=== PATIENT | female | born 1955 | race Caucasian/White ===

== ENCOUNTER 2017-08-20 14:58 | Inpatient (IN) | payer OTHER ==
[~2017-08-20] VITALS: Ht 165.1 cm; Wt 65.8 kg
[2017-08-20] MEDS ORDERED: ONDANSETRON HCL/PF 4 MG/2 ML VIAL ONE (16:00)
[2017-08-20] MEDS ORDERED: IV NS 0.9% 1,000 ML BAG IV ONE ×2 (16:00→17:30)
[2017-08-20] MEDS ORDERED: ONDANSETRON HCL/PF 4 MG/2 ML VIAL IVP ONE (16:00)
[2017-08-20 16:09] LABS: BASOPHILS % (AUTO) 0.5 % (0.0-2.0); EOSINOPHILS % (AUTO) 0.2 % (0.0-6.0); HEMATOCRIT 43 % (33-45); HEMOGLOBIN 14.7 g/dL (11.5-14.8); LYMPHOCYTES # (AUTO) 0.8 /CMM (0.8-4.8); LYMPHOCYTES % (AUTO) 8.3 % (20.0-44.0); MEAN CORPUSCULAR HEMOGLOBIN 31 PG (26.0-33.0); MEAN CORPUSCULAR HGB CONC 34 g/dl (31.0-36.0); MEAN CORPUSCULAR VOLUME 92 fL (82-100); MONOCYTES # (AUTO) 0.5 /CMM (0.1-1.30); MONOCYTES % (AUTO) 5.6 % (2.0-12.0); NEUTROPHILS # (AUTO) 8.3 /CMM (1.8-8.9); NEUTROPHILS % (AUTO) 85.4 % (43.0-81.0); PLATELET COUNT (AUTO) 234 /CMM (150-450); RDW COEFFICIENT OF VARIATION 12.6 (11.5-15.0); RED BLOOD CELL COUNT(AUTO) 4.74 MIL/uL (4.0-5.2); WHITE BLOOD COUNT (AUTO) 9.6 K/uL (4.3-11.0)
[2017-08-20 16:20] LABS: CALCIUM, SERUM 9.1 mg/dL (8.5-10.1); CARBON DIOXIDE 26 mmol/L (21-32); CHLORIDE 97 mmol/L (98-107); CREATININE 0.7 mg/dL (0.6-1.3); GLUCOSE 170 mg/dL (74-106); POTASSIUM 3.3 mmol/L (3.5-5.1); SODIUM SERUM 133 mmol/L (136-145); UREA NITROGEN, BLOOD 6 mg/dL (7-18)
[2017-08-20 16:28] LABS: TROPONIN I < 0.017 ng/mL (0.00-0.056)
[2017-08-20 16:36] LABS: ALANINE AMINOTRANSFERASE 44 U/L (12-78); ALBUMIN 3.5 g/dL (3.4-5.0); ALCOHOL, BLOOD < 3 mg/dL (0-0); ALKALINE PHOSPHATASE 95 U/L (46-116); ASPARTATE AMINOTRANSFERASE 22 U/L (15-37); BILIRUBIN,TOTAL 0.3 mg/dL (0.2-1.0); TOTAL PROTEIN, SERUM 7.2 g/dL (6.4-8.2)
[2017-08-20 16:38] LABS: SALICYLATE 1.3 mg/dL (2.8-20.0)
[2017-08-20 16:39] LABS: ACETAMINOPHEN 0 ug/ml (10-30)
[2017-08-20 17:43] LABS: APPEARANCE,URINE Clear (CLEAR); BILIRUBIN,URINE Negative (NEGATIVE); BLOOD, URINE Small Ery/uL (NEGATIVE); COLOR,URINE Yellow (YELLOW); KETONES,URINE Negative (NEGATIVE); LEUKOCYTE ESTERASE ,URINE Negative (NEGATIVE); NITRITE, URINE Negative (NEGATIVE); PROTEIN,URINE Negative (NEGATIVE); UGLUCOSE Negative (NEGATIVE); UROBILINOGEN,URINE 0.2 EU/dL (0.2)
[2017-08-20] MEDS ORDERED: ALBU8.5H2 IH (17:44)
[2017-08-20] MEDS ORDERED: PALI117D IM (17:44)
[2017-08-20] MEDS ORDERED: ALBU18HF2 IH (17:44)
[2017-08-20] MEDS ORDERED: FLUT16SP16 NS (17:44)
[2017-08-20] MEDS ORDERED: HYDR25TA4 PO (17:44)
[2017-08-20 18:04] LABS: BACTERIA,URINE Few /HPF (None Seen); SQUAMOUS EPITHELIAL CELL,UR Few /HPF (None Seen); WBC,URINE 0-2 /HPF (0-3)
[2017-08-20] MEDS ORDERED: IOHEXOL-300 100 ML VIAL IV ONE (18:26)
[2017-08-20] MEDS ORDERED: IV NS 0.9% 250 ML IV ONE (18:26)
[2017-08-20] MEDS ORDERED: POTASSIUM CHLORIDE 20 MEQ TAB.PRT.SR PO ONE ×2 (19:30→19:42)
[2017-08-20] MEDS ORDERED: ALBUTEROL SULFATE 8 GM HFA.AER.AD IH PRN (20:00)
[2017-08-20] MEDS ORDERED: MAG HYDROX/AL HYDROX/SIMETH 30 ML UDC PO PRN (20:30)
[2017-08-20] MEDS ORDERED: ZOLPIDEM TARTRATE 5 MG TABLET PO PRN (20:30)
[2017-08-20] MEDS ORDERED: MAGNESIUM HYDROXIDE 30 ML UDC PO PRN (20:30)
[2017-08-20] MEDS ORDERED: ACETAMINOPHEN 325 MG TABLET PO PRN (20:30)
[2017-08-20] MEDS ORDERED: ONDANSETRON HCL/PF 4 MG/2 ML VIAL IVP PRN (20:30)
[2017-08-20] MEDS ORDERED: Z GUARD REMEDY 2 OZ OINT TP PRN (20:30)
[2017-08-20 20:35] VITALS: BP 141/79
[2017-08-20] MEDS: IV NS 0.9% 1,000 ML IV PRN (22:22)
[2017-08-20] MEDS: ENOXAPARIN SODIUM 40 MG/0.4 ML DISP.SYRIN SQ SCH (22:34)
[2017-08-20 23:00] VITALS: BP 141/79
[2017-08-20] MEDS: ALBUTEROL FS 2.5 MG/0.5 ML VIAL.NEB NEB PRN (23:33)
[2017-08-21] MEDS: ALBUTEROL FS 2.5 MG/0.5 ML VIAL.NEB NEB SCH ×2 (07:18→20:10)
[2017-08-21 07:28] LABS: BASOPHILS % (AUTO) 0.5 % (0.0-2.0); EOSINOPHILS # (AUTO) 0.1 /CMM (0.0-0.7); EOSINOPHILS % (AUTO) 0.8 % (0.0-6.0); HEMATOCRIT 41 % (33-45); HEMOGLOBIN 13.8 g/dL (11.5-14.8); LYMPHOCYTES # (AUTO) 0.9 /CMM (0.8-4.8); LYMPHOCYTES % (AUTO) 11.7 % (20.0-44.0); MEAN CORPUSCULAR HEMOGLOBIN 31 PG (26.0-33.0); MEAN CORPUSCULAR HGB CONC 34 g/dl (31.0-36.0); MEAN CORPUSCULAR VOLUME 93 fL (82-100); MONOCYTES # (AUTO) 0.8 /CMM (0.1-1.30); MONOCYTES % (AUTO) 10.1 % (2.0-12.0); NEUTROPHILS % (AUTO) 76.9 % (43.0-81.0); PLATELET COUNT (AUTO) 220 /CMM (150-450); RDW COEFFICIENT OF VARIATION 13.6 (11.5-15.0); RED BLOOD CELL COUNT(AUTO) 4.42 MIL/uL (4.0-5.2); WHITE BLOOD COUNT (AUTO) 7.8 K/uL (4.3-11.0)
[2017-08-21 07:50] LABS: CALCIUM, SERUM 8.7 mg/dL (8.5-10.1); CREATININE 0.6 mg/dL (0.6-1.3); PHOSPHORUS 3.5 mg/dL (2.5-4.9); POTASSIUM 4.1 mmol/L (3.5-5.1)
[2017-08-21 08:00] VITALS: BP_SYST 142; BP_SYST 143; BP_DIAS 86
[2017-08-21] MEDS: FLUTICASONE PROPIONATE 16 GM BOTTLE NS SCH ×2 (08:14→16:23)
[2017-08-21] MEDS ORDERED: ALBUTEROL SULFATE 8 GM HFA.AER.AD IH SCH (09:00)
[2017-08-21 16:00] VITALS: BP 147/83
[2017-08-21 20:00] VITALS: BP 117/74
[2017-08-21] MEDS: ENOXAPARIN SODIUM 40 MG/0.4 ML DISP.SYRIN SQ SCH (20:04)
[2017-08-22] MEDS: IV NS 0.9% 1,000 ML IV PRN (03:49)
[2017-08-22] MEDS: ALBUTEROL FS 2.5 MG/0.5 ML VIAL.NEB NEB SCH ×2 (07:26→20:21)
[2017-08-22 08:00] VITALS: BP 159/91
[2017-08-22] MEDS: FLUTICASONE PROPIONATE 16 GM BOTTLE NS SCH ×2 (08:17→17:27)
[2017-08-22] MEDS: GUAIFENESIN/CODEINE 10 ML UDC PO PRN (13:17)
[2017-08-22 16:00] VITALS: BP 140/79
[2017-08-22] MEDS: ALBUTEROL FS 2.5 MG/0.5 ML VIAL.NEB NEB PRN (16:46)
[2017-08-22 19:55] VITALS: BP 128/80
[2017-08-22 20:00] VITALS: BP 120/86
[2017-08-22] MEDS: ENOXAPARIN SODIUM 40 MG/0.4 ML DISP.SYRIN SQ SCH (20:20)
[2017-08-23] MEDS: ALBUTEROL FS 2.5 MG/0.5 ML VIAL.NEB NEB SCH ×2 (07:45→19:30)
[2017-08-23 08:00] VITALS: BP 139/94
[2017-08-23] MEDS: FLUTICASONE PROPIONATE 16 GM BOTTLE NS SCH ×2 (09:47→17:03)
[2017-08-23] MEDS: GUAIFENESIN/CODEINE 10 ML UDC PO PRN (10:09)
[2017-08-23 16:00] VITALS: BP 144/96
[2017-08-23] MEDS ORDERED: OLANZAPINE 5 MG/TAB.RAPDIS PO ONE (17:00)
[2017-08-23] MEDS: HYDROCODONE/APAP 5/325MG 1 EACH TABLET PO PRN ×2 (17:01→22:25)
[2017-08-23 20:00] VITALS: BP 153/85
[2017-08-23] MEDS: ENOXAPARIN SODIUM 40 MG/0.4 ML DISP.SYRIN SQ SCH (20:30)
[2017-08-24] MEDS: ALBUTEROL FS 2.5 MG/0.5 ML VIAL.NEB NEB SCH (07:32)
[2017-08-24 08:00] VITALS: BP 130/83
[2017-08-24] MEDS: FLUTICASONE PROPIONATE 16 GM BOTTLE NS SCH (09:03)
[2017-09-07] MEDS ORDERED: PALIPERIDONE PALMITATE 117 MG IM SCH (09:00)
== END 2017-08-24 10:35 | disposition home or self-care (01) | DRG 249 ==
LOC: ER 15:03 → MED 20:02
PROVIDERS: ADMIT Internal Medicine; ATTEND Internal Medicine
DX: A08.4 Viral intestinal infection, unspecified (principal); E87.2 Acidosis; E86.0 Dehydration; I10 Essential (primary) hypertension; E87.1 Hypo-osmolality and hyponatremia; E86.1 Hypovolemia; F17.200 Nicotine dependence, unspecified, uncomplicated; E87.6 Hypokalemia; J44.9 Chronic obstructive pulmonary disease, unspecified; Z79.899 Other long term (current) drug therapy; I73.9 Peripheral vascular disease, unspecified; Z88.0 Allergy status to penicillin; K42.9 Umbilical hernia without obstruction or gangrene; F31.9 Bipolar disorder, unspecified
CPT/HCPCS: 36415; 80048-TC; 80076-TC; 80305; 81000-TC; 83605-TC; 83735-TC; 84100-TC; 84484-TC; 85025-TC; 87040-TC; 87081-TC; A4606; G0480; J1650; J2405; J7030; J7050; Q9967; Z7610

== ENCOUNTER 2017-09-02 20:06 | Emergency (ER) | payer OTHER ==
[~2017-09-02] VITALS: Ht 175.3 cm; Wt 56.7 kg
[~2017-09-02 20:06] MED LIST: ALBU18HF2 IH; ALBU8.5H2 IH; FLUT16SP16 NS; HYDR25TA4 PO; PALI117D IM
--- NOTE | 2017-09-02 20:15 | NUR ---
NOT IN THE WAITING ROOM
--- NOTE | 2017-09-02 20:20 | NUR ---
CALLED BUT NOT IN THE WAITING ROOM
--- NOTE | 2017-09-02 20:40 | NUR ---
PT BIB SON TO ER BED 12. HERE FOR MEDICAL AND PSYCH EVAL. PER FAMILY, BEEN TAKEN OFF HIS PSYCH MEDICATION. PT HAS MULTIPLE COMPLAINTS. PLACED ON MONITOR. NAD NOTED. AWAITING MD COTO.
--- NOTE | 2017-09-02 20:53 | NUR ---
DR PRINCE AT BEDSIDE FOR EVAL.
--- NOTE | 2017-09-02 21:00 | NUR ---
Savanna leach in [facility] - 09/02/17 at 2235 by VESNA CHOIR TEACHER AT BEDSIDE FOR EVAL.
--- NOTE | 2017-09-02 21:00 | NUR ---
SPOOL HAULER AT BEDSIDE FOR BLOOD DRAW.
[2017-09-02 21:10] LABS: BASOPHILS % (AUTO) 0.1 % (0.0-2.0); EOSINOPHILS # (AUTO) 0.4 /CMM (0.0-0.7); HEMATOCRIT 46 % (33-45); HEMOGLOBIN 15.3 g/dL (11.5-14.8); LYMPHOCYTES # (AUTO) 1.2 /CMM (0.8-4.8); LYMPHOCYTES % (AUTO) 12.6 % (20.0-44.0); MEAN CORPUSCULAR HEMOGLOBIN 31 PG (26.0-33.0); MEAN CORPUSCULAR HGB CONC 34 g/dl (31.0-36.0); MEAN CORPUSCULAR VOLUME 93 fL (82-100); MONOCYTES # (AUTO) 0.8 /CMM (0.1-1.30); MONOCYTES % (AUTO) 9.1 % (2.0-12.0); NEUTROPHILS # (AUTO) 6.8 /CMM (1.8-8.9); NEUTROPHILS % (AUTO) 74.2 % (43.0-81.0); PLATELET COUNT (AUTO) 221 /CMM (150-450); RDW COEFFICIENT OF VARIATION 13.8 (11.5-15.0); RED BLOOD CELL COUNT(AUTO) 4.91 MIL/uL (4.0-5.2); WHITE BLOOD COUNT (AUTO) 9.2 K/uL (4.3-11.0)
[2017-09-02 21:13] LABS: CALCIUM, SERUM 9.4 mg/dL (8.5-10.1); CARBON DIOXIDE 28 mmol/L (21-32); CHLORIDE 99 mmol/L (98-107); CREATININE 0.7 mg/dL (0.6-1.3); GLUCOSE 129 mg/dL (74-106); SODIUM SERUM 136 mmol/L (136-145); UREA NITROGEN, BLOOD 14 mg/dL (7-18)
[2017-09-02 21:19] LABS: ALANINE AMINOTRANSFERASE 35 U/L (12-78); ALBUMIN 3.8 g/dL (3.4-5.0); ALCOHOL, BLOOD 4 mg/dL (0-0); ALKALINE PHOSPHATASE 112 U/L (46-116); ASPARTATE AMINOTRANSFERASE 21 U/L (15-37); BILIRUBIN,TOTAL 0.3 mg/dL (0.2-1.0); SALICYLATE 3.2 mg/dL (2.8-20.0); TOTAL PROTEIN, SERUM 7.6 g/dL (6.4-8.2)
[2017-09-02 21:20] LABS: ACETAMINOPHEN < 10 ug/ml (10-30)
[2017-09-02 22:25] LABS: APPEARANCE,URINE CLEAR (CLEAR); BILIRUBIN,URINE NEGATIVE (NEGATIVE); BLOOD, URINE 1+ Ery/uL (NEGATIVE); COLOR,URINE YELLOW (YELLOW); KETONES,URINE NEGATIVE (NEGATIVE); LEUKOCYTE ESTERASE ,URINE NEGATIVE (NEGATIVE); NITRITE, URINE NEGATIVE (NEGATIVE); PROTEIN,URINE NEGATIVE (NEGATIVE); UGLUCOSE NEGATIVE (NEGATIVE); UROBILINOGEN,URINE 0.2 EU/dL (0.2)
[2017-09-02 22:35] LABS: BACTERIA,URINE None seen /HPF (None Seen); SQUAMOUS EPITHELIAL CELL,UR Few /HPF (None Seen); WBC,URINE 0-2 /HPF (0-3)
--- NOTE | 2017-09-02 23:27 | NUR ---
REPORT GIVEN TO CHARGE NURSE SUSAN FOR DAJUAN
--- NOTE | 2017-09-03 04:30 | NUR ---
Savanna leach in ED - 09/03/17 at 0528 by GENE AMBULANZ EMT ARRIVED AND REPORT WAS GIVEN BY Jesus LOVELACE RN.
--- NOTE | 2017-09-03 04:35 | NUR ---
Savanna leach in EDM - 09/03/17 at 0528 by GENE PT TRANSFERRED OUT TO [facility]. COPY OF ALL PAPERWORK GIVEN.
--- NOTE | 2017-09-03 07:09 | NUR ---
KATHERINE CALLED FOR TRANSPORT. ETA 75 MIN.
--- NOTE | 2017-09-03 08:49 | NUR ---
REPORT GIVEN TO EMT FOR DAJUAN
[2017-09-03 09:23] VITALS: BP 130/80
== END 2017-09-03 09:54 ==
LOC: ER 20:09
DX: F29 Unspecified psychosis not due to a substance or known physiological condition (principal); J44.9 Chronic obstructive pulmonary disease, unspecified; F31.9 Bipolar disorder, unspecified; Z88.0 Allergy status to penicillin
CPT/HCPCS: 36415; 80048; 80076; 80305; 80329; 81001; 85025; 99285; A4606; G0480 ×2; Z7610; 81000-TC

== ENCOUNTER 2018-02-17 15:05 | Emergency (ER) | payer OTHER ==
[~2018-02-17] VITALS: Ht 167.6 cm; Wt 61.2 kg
[~2018-02-17 15:05] MED LIST changes: -ALBU8.5H2 IH; +ALBU8.5H8 IH
--- NOTE | 2018-02-17 15:15 | NUR ---
PATIENT TO ED DT GENERALIZED WEAKNESS AND SOB,. PATIENT IS AWAKE AND ALERT, APPEARS IN NO DISTRESS. RESPIRATION EVEN AND UNLABORED. SKIN IS WARM TO TOUCH AND NON DIAPHORETIC,. PATIENT IS AFEBRILE. VSS
[2018-02-17] MEDS ORDERED: predniSONE 20 MG TABLET ONE (15:50)
[2018-02-17] MEDS ORDERED: ALBUTEROL FS 2.5 MG/3 ML VIAL.NEB ONE (15:51)
[2018-02-17] MEDS ORDERED: IPRATROPIUM NEB FS 0.5 MG/2.5 ML AMPUL.NEB ONE (15:52)
[2018-02-17] MEDS ORDERED: predniSONE 20 MG TABLET PO ONE (16:00)
[2018-02-17] MEDS ORDERED: IPRATROPIUM NEB FS 0.5 MG/2.5 ML AMPUL.NEB NEB ONE (16:00)
[2018-02-17] MEDS ORDERED: ALBUTEROL FS 2.5 MG/3 ML VIAL.NEB NEB ONE (16:00)
[2018-02-17 16:02] LABS: BASOPHILS % (AUTO) 0.4 % (0.0-2.0); EOSINOPHILS % (AUTO) 0.5 % (0.0-6.0); HEMATOCRIT 41 % (33-45); HEMOGLOBIN 14.4 g/dL (11.5-14.8); LYMPHOCYTES # (AUTO) 1.2 /CMM (0.8-4.8); LYMPHOCYTES % (AUTO) 16.1 % (20.0-44.0); MEAN CORPUSCULAR HGB CONC 35 g/dl (31.0-36.0); MEAN CORPUSCULAR VOLUME 90 fL (82-100); MONOCYTES # (AUTO) 0.8 /CMM (0.1-1.30); MONOCYTES % (AUTO) 10.1 % (2.0-12.0); NEUTROPHILS # (AUTO) 5.5 /CMM (1.8-8.9); NEUTROPHILS % (AUTO) 72.9 % (43.0-81.0); PLATELET COUNT (AUTO) 289 /CMM (150-450); RDW COEFFICIENT OF VARIATION 11.6 (11.5-15.0); RED BLOOD CELL COUNT(AUTO) 4.59 MIL/uL (4.0-5.2); WHITE BLOOD COUNT (AUTO) 7.5 K/uL (4.3-11.0)
[2018-02-17 16:22] LABS: CALCIUM, SERUM 8.4 mg/dL (8.5-10.1); CARBON DIOXIDE 32 mmol/L (21-32); CHLORIDE 88 mmol/L (98-107); CREATININE 0.6 mg/dL (0.6-1.3); GLUCOSE 109 mg/dL (74-106); SODIUM SERUM 125 mmol/L (136-145); UREA NITROGEN, BLOOD 8 mg/dL (7-18)
[2018-02-17 16:28] LABS: ALANINE AMINOTRANSFERASE 49 U/L (12-78); ALBUMIN 3.6 g/dL (3.4-5.0); ALKALINE PHOSPHATASE 111 U/L (46-116); ASPARTATE AMINOTRANSFERASE 17 U/L (15-37); BILIRUBIN,DIRECT 0.1 mg/dL (0.0-0.2); BILIRUBIN,TOTAL 0.3 mg/dL (0.2-1.0); TOTAL PROTEIN, SERUM 7.3 g/dL (6.4-8.2)
[2018-02-17] MEDS ORDERED: ACETAMINOPHEN 325 MG TABLET ONE (16:28)
[2018-02-17] MEDS ORDERED: ACETAMINOPHEN 325 MG TABLET PO ONE (16:30)
[2018-02-17 16:32] LABS: TROPONIN I < 0.017 ng/mL (0.00-0.056)
[2018-02-17] MEDS ORDERED: POTASSIUM CHLORIDE 20 MEQ TAB.PRT.SR PO ONE ×2 (17:00)
[2018-02-17] MEDS ORDERED: IV NS 0.9% 1,000 ML BAG IV ONE (17:00)
[2018-02-17] MEDS ORDERED: PANT40TA2 PO (18:31)
[2018-02-17] MEDS ORDERED: TOPI50TA24 PO (18:31)
--- NOTE | 2018-02-17 18:51 | NUR ---
RECEIVED A CALL FROM [facility] AND WAS TOLD THAT THIS PT WOULD BE TRANSFERRED TO [facility]. PT IS ASSIGNED TO #: [id number]. NUMBER FOR REPORT IS [phone] DR KAISER FOWLER IS THE ACCEPTING MD FOR THIS PT.
--- NOTE | 2018-02-17 19:01 | NUR ---
REPORT GIVEN TO CHRISTIAN QUEEN FROM [facility] FOR CONTINUITY OF CARE
--- NOTE | 2018-02-17 19:10 | NUR ---
RECIEVED REPORT FROM CHRISTIAN MACIEL. PT APPEARS COMFORTABLE AT THIS TIME. PT NOTED WITH NO SOB 02 SAT 95% RA.
--- NOTE | 2018-02-17 19:33 | NUR ---
MIAH RICO AT BEDSIDE SPEAKING TO PT REGARING POC.
[2018-02-17 20:13] VITALS: BP 142/77
--- NOTE | 2018-02-17 20:45 | NUR ---
REPORT GIVEN TO EMT GABRIELLE FOR DAJUAN. IV INTACT AND PATENT. NO S/S INFECTION OR INFILTRATION NOTED AT THIS TIME. PT AWARE SHE WILL BE TRANSFERRED TO [place]. PT WITH ALL PERSONAL BELONGINGS. PT TO BE TRANSFERRED VIA GURNEY. PER GABRIELLE TOOK OVER CARE.
--- NOTE | 2018-02-17 20:46 | NUR ---
MIAH RICO AT BEDSIDE. SPEAKING TO PT REGARDING POC.
== END 2018-02-17 20:48 | disposition short-term general hospital (02) ==
LOC: ER 15:09
DX: R06.02 Shortness of breath (principal); E87.1 Hypo-osmolality and hyponatremia; J44.9 Chronic obstructive pulmonary disease, unspecified; I73.9 Peripheral vascular disease, unspecified; F31.9 Bipolar disorder, unspecified; F17.200 Nicotine dependence, unspecified, uncomplicated; Z88.0 Allergy status to penicillin
CPT/HCPCS: 36415; 71045; 80048; 80076; 83735; 84484; 85025; 93005; 94640; 99285; A4606; J7030; J7512; Z7610

== ENCOUNTER 2018-09-24 14:53 | Emergency (ER) | payer OTHER ==
[~2018-09-24] VITALS: Ht 162.6 cm; Wt 59.0 kg
[~2018-09-24 14:53] MED LIST changes: +PANT40TA2 PO; +TOPI50TA24 PO
--- NOTE | 2018-09-24 15:37 | NUR ---
SEEN BY . AWAITING ORDERS.
--- NOTE | 2018-09-24 15:50 | NUR ---
PT PROVIDED WITH BEDPAN, WILL PROVIDE SAMPLE WHEN CAN. PT STARTED ON O2 VIA NC AT 2MPL FOR COMFORT.
[2018-09-24 16:59] LABS: APPEARANCE,URINE Clear (CLEAR); BILIRUBIN,URINE Negative (NEGATIVE); BLOOD, URINE Small Ery/uL (NEGATIVE); COLOR,URINE Yellow (YELLOW); KETONES,URINE Negative (NEGATIVE); LEUKOCYTE ESTERASE ,URINE Negative (NEGATIVE); NITRITE, URINE Negative (NEGATIVE); PROTEIN,URINE Negative (NEGATIVE); UGLUCOSE Negative (NEGATIVE); UROBILINOGEN,URINE 0.2 EU/dL (0.2)
[2018-09-24 17:09] LABS: BACTERIA,URINE Rare /HPF (None Seen); SQUAMOUS EPITHELIAL CELL,UR Few /HPF (None Seen); WBC,URINE 0-2 /HPF (0-3)
--- NOTE | 2018-09-24 17:38 | NUR ---
CALLED KATHERINE FOR BLS TRANSPORT ETA 30 MINUTES TRIP#[id number]
--- NOTE | 2018-09-24 18:44 | NUR ---
PT OK'D FOR D/C PER MD. EMT TRANSPORT PRESENT. PT PROVIDED EDUCATION AND VERBALZING UNDERSTANDING. PT RV BY MD AGAIN JUST PRIOR TO D/C AT PT REQUEST.
[2018-09-24 18:50] VITALS: BP 135/82
== END 2018-09-24 18:51 ==
LOC: ER 14:56
DX: H61.23 Impacted cerumen, bilateral (principal); O92.6 Galactorrhea; K59.00 Constipation, unspecified; I10 Essential (primary) hypertension; J44.9 Chronic obstructive pulmonary disease, unspecified; F17.200 Nicotine dependence, unspecified, uncomplicated; Z88.0 Allergy status to penicillin
CPT/HCPCS: 70450; 74022; 81001; 99284; A4606; Z7610; 81000-TC

== ENCOUNTER 2018-09-28 10:00 | Emergency (ER) | payer OTHER ==
[~2018-09-28] VITALS: Ht 162.6 cm; Wt 70.3 kg
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
[2018-09-28] MEDS ORDERED: KETOROLAC TROMETHAMINE INJ 30 MG/ML VIAL ONE (10:29)
[2018-09-28] MEDS ORDERED: KETOROLAC TROMETHAMINE INJ 30 MG/ML VIAL IM ONE (10:30)
[2018-09-28] MEDS ORDERED: LORAZEPAM INJ 2 MG/ML VIAL IM ONE (10:30)
[2018-09-28] MEDS ORDERED: LORAZEPAM INJ 2 MG/ML VIAL ONE (10:30)
--- NOTE | 2018-09-28 11:26 | NUR ---
Called Stephanie and spoke to scallop cutter Emily to arrange a BLS transport back to [facility]. Was given an eta of 12:45-13:00 for product picker time. Trip#: [id number]
--- NOTE | 2018-09-28 12:42 | NUR ---
[facility] to [facility]. Written and verbal after care instructions given. Patient verbalizes understanding of instruction.
--- NOTE | 2018-09-28 12:55 | NUR ---
Referred patient to Michelle social media marketing specialist. LAVERNE Martinez at talking to patient.
[2018-09-28 13:17] VITALS: BP 105/68
== END 2018-09-28 13:18 | disposition home or self-care (01) ==
LOC: ER 10:04
DX: S33.8XXA Sprain of other parts of lumbar spine and pelvis, initial encounter (principal); F20.9 Schizophrenia, unspecified; I10 Essential (primary) hypertension; J44.9 Chronic obstructive pulmonary disease, unspecified; F17.200 Nicotine dependence, unspecified, uncomplicated; Z88.0 Allergy status to penicillin; W06.XXXA Fall from bed, initial encounter; Y93.89 Activity, other specified; Y92.89 Other specified places as the place of occurrence of the external cause; Y99.8 Other external cause status
CPT/HCPCS: 71045; 72100; 72170; 72220; 96372 ×2; 99283; A4606; J1885; J2060; Z7610

== ENCOUNTER 2018-11-15 16:38 | Emergency (ER) | payer OTHER ==
[~2018-11-15] VITALS: Ht 162.6 cm; Wt 59.0 kg
--- NOTE | 2018-11-15 17:00 | NUR ---
patient came in to the ER c/o sob, on room air, breathing evenly and unlabored. denies any pain at this time. connected to the monitor and pulse ox. kept comfortable, will continue to monitor accordingly.
[2018-11-15] MEDS ORDERED: ASPIRIN 325 MG TABLET ONE (17:26)
[2018-11-15] MEDS: ASPIRIN 325 MG TABLET PO ONE (17:28)
[2018-11-15 17:39] LABS: BASOPHILS # (AUTO) 0.1 /CMM (0.0-0.2); BASOPHILS % (AUTO) 1.1 % (0.0-2.0); EOSINOPHILS % (AUTO) 3.9 % (0.0-6.0); HEMATOCRIT 42 % (33-45); HEMOGLOBIN 14.3 g/dL (11.5-14.8); LYMPHOCYTES # (AUTO) 1.2 /CMM (0.8-4.8); LYMPHOCYTES % (AUTO) 17.9 % (20.0-44.0); MEAN CORPUSCULAR HGB CONC 34 g/dl (31.0-36.0); MEAN CORPUSCULAR VOLUME 94 fL (82-100); MONOCYTES # (AUTO) 0.8 /CMM (0.1-1.30); MONOCYTES % (AUTO) 12.1 % (2.0-12.0); NEUTROPHILS # (AUTO) 4.3 /CMM (1.8-8.9); PLATELET COUNT (AUTO) 250 /CMM (150-450); RED BLOOD CELL COUNT(AUTO) 4.49 MIL/uL (4.0-5.2); WHITE BLOOD COUNT (AUTO) 6.6 K/uL (4.3-11.0)
[2018-11-15 17:44] LABS: APPEARANCE,URINE Clear (CLEAR); BILIRUBIN,URINE Negative (NEGATIVE); BLOOD, URINE Trace-lysed Ery/uL (NEGATIVE); COLOR,URINE Yellow (YELLOW); KETONES,URINE Negative (NEGATIVE); LEUKOCYTE ESTERASE ,URINE Negative (NEGATIVE); NITRITE, URINE Negative (NEGATIVE); PROTEIN,URINE Negative (NEGATIVE); UGLUCOSE Negative (NEGATIVE); UROBILINOGEN,URINE 0.2 EU/dL (0.2)
--- NOTE | 2018-11-15 17:47 | NUR ---
URINE COLLECTED AND SENT TO LAB
[2018-11-15 17:49] LABS: CARBON DIOXIDE 35 mmol/L (21-32); CHLORIDE 97 mmol/L (98-107); CREATININE 0.8 mg/dL (0.6-1.3); GLUCOSE 108 mg/dL (74-106); POTASSIUM 3.8 mmol/L (3.5-5.1); SODIUM SERUM 133 mmol/L (136-145); UREA NITROGEN, BLOOD 20 mg/dL (7-18)
[2018-11-15 17:54] LABS: ALANINE AMINOTRANSFERASE 32 U/L (12-78); ALBUMIN 3.3 g/dL (3.4-5.0); ALCOHOL, BLOOD < 3 mg/dL (0-0); ALKALINE PHOSPHATASE 129 U/L (46-116); ASPARTATE AMINOTRANSFERASE 17 U/L (15-37); BILIRUBIN,TOTAL 0.1 mg/dL (0.2-1.0); TOTAL PROTEIN, SERUM 6.7 g/dL (6.4-8.2)
[2018-11-15 17:55] LABS: WBC,URINE 0-2 /HPF (0-3)
[2018-11-15] MEDS: IPRATROPIUM NEB FS 0.5 MG/2.5 ML AMPUL.NEB NEB ONE (17:55)
[2018-11-15] MEDS: ALBUTEROL FS 2.5 MG/3 ML VIAL.NEB NEB ONE (17:56)
[2018-11-15] MEDS ORDERED: ALBUTEROL FS 2.5 MG/3 ML VIAL.NEB ONE (17:56)
[2018-11-15] MEDS ORDERED: IPRATROPIUM NEB FS 0.5 MG/2.5 ML AMPUL.NEB ONE (17:56)
[2018-11-15 18:02] LABS: BACTERIA,URINE None seen /HPF (None Seen); SQUAMOUS EPITHELIAL CELL,UR Few /HPF (None Seen)
--- NOTE | 2018-11-15 18:22 | NUR ---
PLACED INTO 2 LPM O2 FLOW DUE TO 93% SPO2 ON ROOM AIR PRE BREATHING TX. Addendum: 11/15/18 at 1822 by ARCADIO BATEMAN RT Amended: Links added.
[2018-11-15] MEDS ORDERED: LORAZEPAM 1 MG TABLET ONE (19:14)
[2018-11-15] MEDS: LORAZEPAM 1 MG TABLET PO ONE (19:16)
--- NOTE | 2018-11-15 19:22 | NUR ---
CALLED KATHERINE FOR TRANSPORT BACK TO SNF, ETA [phone] TRIP#[id number]
--- NOTE | 2018-11-15 19:30 | NUR ---
endorsed to Melania GONZALES for juliann.
--- NOTE | 2018-11-15 20:20 | NUR ---
REPORT GIVEN TO EMT FROM [facility]. PT STABLE, NAD NOTED & EN ROUTE VIA BLS AMB TO [facility] CASTELLAN[facility] FOR CONT OF CARE.
[2018-11-15 20:25] VITALS: BP 107/78
== END 2018-11-15 20:35 ==
LOC: ER 16:40
DX: R11.2 Nausea with vomiting, unspecified (principal); R07.89 Other chest pain; F20.9 Schizophrenia, unspecified; I10 Essential (primary) hypertension; J44.9 Chronic obstructive pulmonary disease, unspecified; F32.9 Major depressive disorder, single episode, unspecified; F17.200 Nicotine dependence, unspecified, uncomplicated; Z98.890 Other specified postprocedural states; Z88.0 Allergy status to penicillin; Z79.899 Other long term (current) drug therapy
CPT/HCPCS: 36415; 71045; 80048; 80076; 80305; 80307; 81001; 84484; 85025; 93005 ×2; 94640 ×2; 99284; A4606; 81000-TC; G0480

== ENCOUNTER 2019-01-20 12:05 | Emergency (ER) | payer MEDICAID, OTHER ==
[~2019-01-20] VITALS: Ht 165.1 cm; Wt 63.5 kg
[~2019-01-20 12:05] MED LIST changes: +FLUT16SP16 BNOSTRILS; -FLUT16SP16 NS
[2019-01-20 12:10] VITALS: BP 134/88
[2019-01-20] MEDS ORDERED: OLANZAPINE 5 MG TABLET ONE (12:21)
[2019-01-20] MEDS ORDERED: OLANZAPINE 5 MG TABLET PO ONE (12:30)
[2019-01-20 12:43] LABS: BASOPHILS # (AUTO) 0.1 /CMM (0.0-0.2); BASOPHILS % (AUTO) 1.9 % (0.0-2.0); EOSINOPHILS % (AUTO) 1.5 % (0.0-6.0); HEMATOCRIT 44 % (33-45); HEMOGLOBIN 15.1 g/dL (11.5-14.8); LYMPHOCYTES # (AUTO) 0.8 /CMM (0.8-4.8); MEAN CORPUSCULAR HGB CONC 34 g/dl (31.0-36.0); MEAN CORPUSCULAR VOLUME 95 fL (82-100); MONOCYTES # (AUTO) 0.6 /CMM (0.1-1.30); MONOCYTES % (AUTO) 9.8 % (2.0-12.0); NEUTROPHILS # (AUTO) 4.4 /CMM (1.8-8.9); NEUTROPHILS % (AUTO) 72.8 % (43.0-81.0); PLATELET COUNT (AUTO) 243 /CMM (150-450); RED BLOOD CELL COUNT(AUTO) 4.68 MIL/uL (4.0-5.2)
[2019-01-20] MEDS ORDERED: DOCU-141 PO (12:44)
[2019-01-20] MEDS ORDERED: PROM6.256 PO (12:44)
[2019-01-20] MEDS ORDERED: DULO20CA PO (12:44)
[2019-01-20] MEDS ORDERED: NICO-676 TD (12:44)
[2019-01-20] MEDS ORDERED: NAPR-1009 PO (12:44)
[2019-01-20] MEDS ORDERED: LISI-607 PO (12:44)
[2019-01-20] MEDS ORDERED: VITA1TAB56 PO (12:44)
[2019-01-20] MEDS ORDERED: BUDE0.5A IH (12:44)
[2019-01-20] MEDS ORDERED: MONT10TA22 PO (12:44)
[2019-01-20] MEDS ORDERED: LORA0.5T PO (12:44)
[2019-01-20 13:07] LABS: CALCIUM, SERUM 9.2 mg/dL (8.5-10.1); CARBON DIOXIDE 37 mmol/L (21-32); CHLORIDE 98 mmol/L (98-107); CREATININE 0.6 mg/dL (0.6-1.3); GLUCOSE 100 mg/dL (74-106); POTASSIUM 3.8 mmol/L (3.5-5.1); SODIUM SERUM 137 mmol/L (136-145); UREA NITROGEN, BLOOD 16 mg/dL (7-18)
[2019-01-20 13:08] LABS: APPEARANCE,URINE Clear (CLEAR); BILIRUBIN,URINE Negative (NEGATIVE); BLOOD, URINE Trace-intact Ery/uL (NEGATIVE); COLOR,URINE Yellow (YELLOW); KETONES,URINE Negative (NEGATIVE); LEUKOCYTE ESTERASE ,URINE Negative (NEGATIVE); NITRITE, URINE Negative (NEGATIVE); PROTEIN,URINE Negative (NEGATIVE); UGLUCOSE Negative (NEGATIVE); UROBILINOGEN,URINE 0.2 EU/dL (0.2)
[2019-01-20 13:13] LABS: BACTERIA,URINE None seen /HPF (None Seen); SQUAMOUS EPITHELIAL CELL,UR Few /HPF (None Seen); WBC,URINE 0-3 /HPF (0-3)
[2019-01-20 13:19] LABS: ACETAMINOPHEN 0 ug/ml (10-30); ALANINE AMINOTRANSFERASE 28 U/L (12-78); ALBUMIN 3.5 g/dL (3.4-5.0); ALCOHOL, BLOOD < 3 mg/dL (0-0); ALKALINE PHOSPHATASE 83 U/L (46-116); ASPARTATE AMINOTRANSFERASE 17 U/L (15-37); BILIRUBIN,DIRECT 0.1 mg/dL (0.0-0.2); BILIRUBIN,TOTAL 0.3 mg/dL (0.2-1.0); TOTAL PROTEIN, SERUM 6.9 g/dL (6.4-8.2)
--- NOTE | 2019-01-20 13:29 | NUR ---
MALA JAIN ETA 1415 TRIP #[id number]
== END 2019-01-20 14:26 | disposition home or self-care (01) ==
LOC: ER 12:06
DX: F20.9 Schizophrenia, unspecified (principal); M79.10 Myalgia, unspecified site; I10 Essential (primary) hypertension; J44.9 Chronic obstructive pulmonary disease, unspecified; F17.200 Nicotine dependence, unspecified, uncomplicated; Z98.890 Other specified postprocedural states; Z98.51 Tubal ligation status; Z88.0 Allergy status to penicillin; Z88.8 Allergy status to other drugs, medicaments and biological substances
CPT/HCPCS: 36415; 80048; 80076; 80305; 80307; 80329; 81001; 85025; 99284; G0480; 81000-TC

== ENCOUNTER → 2019-04-02 | Emergency (ER) | payer MEDICAID ==
[~2019-04-02] VITALS: Ht 165.1 cm; Wt 63.5 kg
[~2019-04-02] MED LIST changes: -ALBU8.5H8 IH; +AMLO5TAB4 PO; +BUDE0.5A IH; +DOCU-141 PO; +DULO20CA PO; +HYDR-500 PO; +HYDR12.55 PO; +LISI-607 PO; +LORA0.5T PO; +LORAZEPAM 1 MG TABLET ONE; +LORAZEPAM 1 MG TABLET PO ONE; +MONT10TA22 PO; +NAPR-1009 PO; +NICO-676 TD; +OLANZAPINE 5 MG TABLET ONE; +OLANZAPINE 5 MG TABLET PO ONE; -PALI117D IM; +PROM6.256 PO; +RISP2TAB PO; +RISP2TAB23 PO; +VITA1TAB56 PO
--- NOTE | 2019-04-02 06:55 | NUR ---
PT TARAS FROM [facility]. PER RA, PT CALLED 911 HERSELF C/O SI WITH AUDITORY HALLUCINATIONS. PT TALKING EXCESSIVELY, WORD SALAD SPEECH. VITAL SIGNS STABLE. SKIN INTACT. ABLE TO AMBULATE WITH STEADY GAIT. PT PLACED IN GOWN AND BELONGINGS COLLECTED TO NURSE STATION. SITTER AT BEDSIDE, WILL CONTINUE TO MONITOR.
--- NOTE | 2019-04-02 07:14 | NUR ---
NEPHROLOGY NURSE AT BEDSIDE FOR BLOOD DRAW
--- NOTE | 2019-04-02 07:22 | NUR ---
URINE COLLECTED AND SENT TO LAB
[2019-04-02 07:28] LABS: APPEARANCE,URINE CLEAR (CLEAR); BILIRUBIN,URINE NEGATIVE (NEGATIVE); BLOOD, URINE 1+ Ery/uL (NEGATIVE); COLOR,URINE YELLOW (YELLOW); KETONES,URINE NEGATIVE (NEGATIVE); LEUKOCYTE ESTERASE ,URINE TRACE (NEGATIVE); NITRITE, URINE NEGATIVE (NEGATIVE); PH,URINE 6.5 (5.0-8.0); PROTEIN,URINE NEGATIVE (NEGATIVE); UGLUCOSE NEGATIVE (NEGATIVE); UROBILINOGEN,URINE 0.2 EU/dL (0.2)
[2019-04-02 07:28] LABS: BASOPHILS # (AUTO) 0.1 /CMM (0.0-0.2); BASOPHILS % (AUTO) 0.9 % (0.0-2.0); CALCIUM, SERUM 8.6 mg/dL (8.5-10.1); CARBON DIOXIDE 32 mmol/L (21-32); CHLORIDE 101 mmol/L (98-107); CREATININE 0.6 mg/dL (0.6-1.3); EOSINOPHILS % (AUTO) 3.1 % (0.0-6.0); GLUCOSE 101 mg/dL (74-106); HEMATOCRIT 42 % (33-45); HEMOGLOBIN 14.3 g/dL (11.5-14.8); LYMPHOCYTES # (AUTO) 0.9 /CMM (0.8-4.8); LYMPHOCYTES % (AUTO) 14.6 % (20.0-44.0); MEAN CORPUSCULAR HGB CONC 34 g/dl (31.0-36.0); MEAN CORPUSCULAR VOLUME 94 fL (82-100); MONOCYTES # (AUTO) 0.7 /CMM (0.1-1.30); MONOCYTES % (AUTO) 11.1 % (2.0-12.0); NEUTROPHILS # (AUTO) 4.6 /CMM (1.8-8.9); NEUTROPHILS % (AUTO) 70.3 % (43.0-81.0); PLATELET COUNT (AUTO) 215 /CMM (150-450); POTASSIUM 3.5 mmol/L (3.5-5.1); RED BLOOD CELL COUNT(AUTO) 4.49 MIL/uL (4.0-5.2); SODIUM SERUM 137 mmol/L (136-145); UREA NITROGEN, BLOOD 21 mg/dL (7-18); WHITE BLOOD COUNT (AUTO) 6.5 K/uL (4.3-11.0)
[2019-04-02 07:35] LABS: ALANINE AMINOTRANSFERASE 35 U/L (12-78); ALBUMIN 3.3 g/dL (3.4-5.0); ALKALINE PHOSPHATASE 83 U/L (46-116); ASPARTATE AMINOTRANSFERASE 21 U/L (15-37); BILIRUBIN,DIRECT 0.1 mg/dL (0.0-0.2); BILIRUBIN,TOTAL 0.2 mg/dL (0.2-1.0); TOTAL PROTEIN, SERUM 6.5 g/dL (6.4-8.2)
[2019-04-02 07:36] LABS: ALCOHOL, BLOOD < 3 mg/dL (0-0); SALICYLATE 2.7 mg/dL (2.8-20.0)
[2019-04-02 08:22] LABS: BACTERIA,URINE Many /HPF (None Seen); RBC,URINE 0-2 /HPF (0-2); SQUAMOUS EPITHELIAL CELL,UR Moderate /HPF (None Seen); WBC,URINE 0-2 /HPF (0-3)
--- NOTE | 2019-04-02 09:02 | NUR ---
SPOKE TO KATHERINE DISPATCH [facility] TRANSPORT ARRANGED GOING TO [facility], ETA IS 1045,TRIP NUMBER [id number].
--- NOTE | 2019-04-02 10:29 | NUR ---
REPORT GIVEN TO LEO GONZALES AT [facility].
--- NOTE | 2019-04-02 11:06 | NUR ---
NEW ETA FOR AMBULANCE, [phone]
--- NOTE | 2019-04-02 11:56 | NUR ---
PATIENT A/OX4, IN STABLE CONDITION, DENIES SI/HI, NO RESPIRATORY DISTRESS. VSS. NEEDS ATTENDED. Patient discharged to [facility] in stable condition. Written and verbal after care instructions given. Patient verbalizes understanding of instruction.
[2019-04-02 12:13] VITALS: BP 145/67
== END | disposition home or self-care (01) ==
LOC: ER 06:49
DX: F20.9 Schizophrenia, unspecified (principal); I10 Essential (primary) hypertension; J44.9 Chronic obstructive pulmonary disease, unspecified; F17.200 Nicotine dependence, unspecified, uncomplicated; Z88.8 Allergy status to other drugs, medicaments and biological substances; Z98.890 Other specified postprocedural states; Z98.51 Tubal ligation status; Z88.0 Allergy status to penicillin
CPT/HCPCS: 36415; 80048; 80076; 80305; 80307; 80329; 81001; 85025; 87086; 99284; G0480; 81000-TC

== ENCOUNTER 2019-04-20 18:40 | Emergency (ER) | payer MEDICAID ==
[~2019-04-20] VITALS: Ht 162.6 cm; Wt 56.7 kg
[~2019-04-20 18:40] MED LIST changes: -AMLO5TAB4 PO; -HYDR-500 PO; -HYDR12.55 PO; -LORAZEPAM 1 MG TABLET ONE; -LORAZEPAM 1 MG TABLET PO ONE; -OLANZAPINE 5 MG TABLET ONE; -OLANZAPINE 5 MG TABLET PO ONE; -RISP2TAB PO; -RISP2TAB23 PO; -TOPI50TA24 PO
[2019-04-20] MEDS ORDERED: LORA0.5T PO (18:56)
[2019-04-20] MEDS ORDERED: AMLO5TAB4 PO (18:56)
[2019-04-20] MEDS ORDERED: TOPI50TA24 PO (18:56)
[2019-04-20] MEDS ORDERED: RISP2TAB PO (18:56)
[2019-04-20] MEDS ORDERED: HYDR-3026 PO (18:56)
[2019-04-20] MEDS ORDERED: HYDR12.55 PO (18:56)
[2019-04-20] MEDS ORDERED: RISP2TAB23 PO (18:56)
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
--- NOTE | 2019-04-20 19:52 | NUR ---
LAB AT BEDSIDE FOR DRAW
[2019-04-20 19:56] LABS: BASOPHILS # (AUTO) 0.1 /CMM (0.0-0.2); BASOPHILS % (AUTO) 0.7 % (0.0-2.0); HEMATOCRIT 43 % (33-45); HEMOGLOBIN 14.3 g/dL (11.5-14.8); LYMPHOCYTES # (AUTO) 1.2 /CMM (0.8-4.8); MEAN CORPUSCULAR HGB CONC 34 g/dl (31.0-36.0); MEAN CORPUSCULAR VOLUME 95 fL (82-100); MONOCYTES # (AUTO) 0.6 /CMM (0.1-1.30); MONOCYTES % (AUTO) 8.9 % (2.0-12.0); NEUTROPHILS # (AUTO) 4.9 /CMM (1.8-8.9); NEUTROPHILS % (AUTO) 71.4 % (43.0-81.0); PLATELET COUNT (AUTO) 239 /CMM (150-450); RED BLOOD CELL COUNT(AUTO) 4.49 MIL/uL (4.0-5.2); WHITE BLOOD COUNT (AUTO) 6.9 K/uL (4.3-11.0)
--- NOTE | 2019-04-20 20:09 | NUR ---
PT BACK FROM RADIOLOGY FOR HEAD CT
[2019-04-20 20:16] LABS: ALBUMIN 3.3 g/dL (3.4-5.0); BILIRUBIN,DIRECT 0.1 mg/dL (0.0-0.2); BILIRUBIN,TOTAL 0.1 mg/dL (0.2-1.0); CALCIUM, SERUM 8.7 mg/dL (8.5-10.1); CREATININE 0.7 mg/dL (0.6-1.3); POTASSIUM 3.6 mmol/L (3.5-5.1); TOTAL PROTEIN, SERUM 6.7 g/dL (6.4-8.2)
--- NOTE | 2019-04-20 21:22 | NUR ---
KATIE MURPHY FOR TRANSPORTATION. ETA 2330 Addendum: 04/20/19 at 2122 by KAYLIE TRIP NUMBER [id number]
--- NOTE | 2019-04-20 22:29 | NUR ---
GABRIELLE 107 AT BEDSIDE FOR PT TRANSPORT TO [facility]. REPORT GIVEN. PT INSTABLE CONDITION FOR TRANSPORT.
--- NOTE | 2019-04-20 22:54 | NUR ---
FACILITY NOTIFIED THAT PT IS COMING BACK. SPOKE WITH MADAY, FACILITY STAFF TO INFORM RETURN
[2019-04-21 00:05] VITALS: BP 108/84
== END 2019-04-20 23:10 | disposition home or self-care (01) ==
LOC: ER 18:43
DX: S09.8XXA Other specified injuries of head, initial encounter (principal); I10 Essential (primary) hypertension; J44.9 Chronic obstructive pulmonary disease, unspecified; F20.9 Schizophrenia, unspecified; F17.200 Nicotine dependence, unspecified, uncomplicated; Z98.890 Other specified postprocedural states; Z88.0 Allergy status to penicillin; Z88.8 Allergy status to other drugs, medicaments and biological substances; Z79.899 Other long term (current) drug therapy; W22.8XXA Striking against or struck by other objects, initial encounter; Y93.89 Activity, other specified; Y92.89 Other specified places as the place of occurrence of the external cause; Y99.8 Other external cause status
CPT/HCPCS: 36415; 70450-TC; 80048-TC; 80076-TC; 85025-TC

== ENCOUNTER 2019-04-24 03:02 | Emergency (ER) | payer MEDICAID ==
[~2019-04-24] VITALS: Ht 162.6 cm; Wt 57.6 kg
[~2019-04-24 03:02] MED LIST changes: +AMLO5TAB4 PO; +HYDR-3026 PO; +HYDR12.55 PO; -HYDR25TA4 PO; -LISI-607 PO; -NAPR-1009 PO; +RISP2TAB PO; +RISP2TAB23 PO; +TOPI50TA24 PO; -VITA1TAB56 PO
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
--- NOTE | 2019-04-24 03:59 | NUR ---
EKG AND XRAY AT BEDSIDE
[2019-04-24 04:00] LABS: APPEARANCE,URINE Clear (CLEAR); BILIRUBIN,URINE Negative (NEGATIVE); BLOOD, URINE Trace-intact Ery/uL (NEGATIVE); COLOR,URINE Yellow (YELLOW); KETONES,URINE Negative (NEGATIVE); LEUKOCYTE ESTERASE ,URINE Negative (NEGATIVE); NITRITE, URINE Negative (NEGATIVE); PH,URINE 7.5 (5.0-8.0); PROTEIN,URINE Negative (NEGATIVE); UGLUCOSE Negative (NEGATIVE); UROBILINOGEN,URINE 0.2 EU/dL (0.2)
[2019-04-24 04:23] LABS: BASOPHILS % (AUTO) 0.8 % (0.0-2.0); EOSINOPHILS % (AUTO) 3.6 % (0.0-6.0); HEMATOCRIT 42 % (33-45); HEMOGLOBIN 14.4 g/dL (11.5-14.8); LYMPHOCYTES # (AUTO) 1.2 /CMM (0.8-4.8); LYMPHOCYTES % (AUTO) 20.5 % (20.0-44.0); MEAN CORPUSCULAR HGB CONC 34 g/dl (31.0-36.0); MEAN CORPUSCULAR VOLUME 94 fL (82-100); MONOCYTES # (AUTO) 0.8 /CMM (0.1-1.30); MONOCYTES % (AUTO) 13.8 % (2.0-12.0); NEUTROPHILS # (AUTO) 3.6 /CMM (1.8-8.9); NEUTROPHILS % (AUTO) 61.3 % (43.0-81.0); PLATELET COUNT (AUTO) 235 /CMM (150-450); RED BLOOD CELL COUNT(AUTO) 4.51 MIL/uL (4.0-5.2); WHITE BLOOD COUNT (AUTO) 5.9 K/uL (4.3-11.0)
[2019-04-24 04:38] LABS: BACTERIA,URINE Few /HPF (None Seen); SQUAMOUS EPITHELIAL CELL,UR Few /HPF (None Seen); URINE AMORPHOUS PHOSPHATES Few /HPF (None Seen); WBC,URINE 0-2 /HPF (0-3)
[2019-04-24 04:38] LABS: ALANINE AMINOTRANSFERASE 30 U/L (12-78); ALBUMIN 3.2 g/dL (3.4-5.0); ALKALINE PHOSPHATASE 81 U/L (46-116); ASPARTATE AMINOTRANSFERASE 14 U/L (15-37); BILIRUBIN,DIRECT 0.1 mg/dL (0.0-0.2); BILIRUBIN,TOTAL 0.3 mg/dL (0.2-1.0); CALCIUM, SERUM 8.8 mg/dL (8.5-10.1); CHLORIDE 101 mmol/L (98-107); CREATININE 0.7 mg/dL (0.6-1.3); GLUCOSE 109 mg/dL (74-106); POTASSIUM 3.4 mmol/L (3.5-5.1); SALICYLATE 2.8 mg/dL (2.8-20.0); SODIUM SERUM 140 mmol/L (136-145); TOTAL PROTEIN, SERUM 6.4 g/dL (6.4-8.2); UREA NITROGEN, BLOOD 10 mg/dL (7-18)
[2019-04-24 04:40] LABS: ACETAMINOPHEN 0 ug/ml (10-30); ALCOHOL, BLOOD < 3 mg/dL (0-0)
[2019-04-24 05:01] LABS: CARBON DIOXIDE 33 mmol/L (21-32)
--- NOTE | 2019-04-24 05:03 | NUR ---
CALLED [facility] FOR XRAY READ
--- NOTE | 2019-04-24 06:19 | NUR ---
PER CHRISTIAN DE LEÓN PT CLEARED TO RETURN TO FACILITY/ SEE STORAGE FACILITY HOUSEKEEPER IN AM
--- NOTE | 2019-04-24 07:31 | NUR ---
REPORT RECEIVED FROM PAULA GONZALES FOR DAJUAN
--- NOTE | 2019-04-24 08:50 | NUR ---
LAVERNE met with pt. bedside. Pt. states she does not want to return to her facility " [facility]." Pt. states her son Isiah is her POA. LAVERNE left a voicemail message for Isiah requesting a call back . LAVERNE also informed case management associate Yani regarding pt. needing a different FPC to go to. Yani to follow up with pt. LAVERNE updated CHRISTIAN Panda with aforementioned information.
--- NOTE | 2019-04-24 10:02 | NUR ---
FOOD TRAY PROVIDED, TOLERATING PO WELL
--- NOTE | 2019-04-24 10:44 | NUR ---
BARN HAND DEBORAH REN AND LAVERNE STEINBERG AT BEDSIDE
--- NOTE | 2019-04-24 10:47 | NUR ---
clinical application manager Yani and LAVERNE met with pt. bedside with pt's accounts payable administrator Ciara via phone from [facility]. Per Ciara they are accepting pt. back. Pt. is willing to go back to [facility].
--- NOTE | 2019-04-24 10:49 | NUR ---
[facility] [phone] ETA 30 MINS TRIP NUMBER IS [id number] PER JUSTINA.
[2019-04-24 12:34] VITALS: BP 129/81
--- NOTE | 2019-04-24 12:34 | NUR ---
patient picked up by private ambulance going to [facility]. On room air, breathing evenly and unlabored. denies any pain or discomfort.
== END 2019-04-24 12:34 ==
LOC: ER 03:04
DX: F29 Unspecified psychosis not due to a substance or known physiological condition (principal); F31.9 Bipolar disorder, unspecified; F41.9 Anxiety disorder, unspecified; J44.9 Chronic obstructive pulmonary disease, unspecified; I10 Essential (primary) hypertension; F20.9 Schizophrenia, unspecified; F17.200 Nicotine dependence, unspecified, uncomplicated; R45.851 Suicidal ideations; Z88.8 Allergy status to other drugs, medicaments and biological substances; Z98.890 Other specified postprocedural states; Z98.51 Tubal ligation status; Z88.0 Allergy status to penicillin
CPT/HCPCS: 36415; 71045; 80048; 80076; 80305; 80307; 80329; 81001; 84484; 85025; 93005; 99285; G0480; 81000-TC

== ENCOUNTER 2019-10-27 14:21 | Emergency (ER) | payer MEDICAID, OTHER ==
[~2019-10-27] VITALS: Ht 162.6 cm; Wt 56.7 kg
[~2019-10-27 14:21] MED LIST changes: -HYDR-3026 PO; +HYDR-500 PO
--- NOTE | 2019-10-27 14:30 | NUR ---
[facility] C/O BREAST AND BACK PAIN X "20 YEARS", PT IS AAOX3, NOT IN RESPIRATORY DISTRESS, HOOKED TO MONITOR, KEPT RESTED AND COMFORTABLE, WILL CONTINUE TO MONITOR.
--- NOTE | 2019-10-27 14:40 | NUR ---
SEEN AND EXAMINED BY DR. FORTUNE
--- NOTE | 2019-10-27 14:41 | NUR ---
CALLED [facility], [facility] WANTS A PSYCH EVAL ON PATIENT.
--- NOTE | 2019-10-27 14:50 | NUR ---
URINE SPECIMEN COLLECTED AND SENT TO LAB.
[2019-10-27] MEDS ORDERED: HYDROCODONE/APAP 5/325MG 1 EACH TABLET ONE (14:51)
[2019-10-27] MEDS ORDERED: DEXAMETHASONE SOD PHOSPHATE 10 MG/ML VIAL ONE (14:51)
[2019-10-27] MEDS ORDERED: predniSONE 20 MG TABLET ONE (14:52)
[2019-10-27] MEDS ORDERED: DEXAMETHASONE SOD PHOSPHATE 10 MG/ML VIAL IV ONE (15:00)
[2019-10-27] MEDS ORDERED: predniSONE 20 MG TABLET PO ONE (15:00)
[2019-10-27] MEDS ORDERED: HYDROCODONE/APAP 5/325MG 1 EACH TABLET PO ONE (15:00)
[2019-10-27] MEDS ORDERED: IPRATROPIUM NEB FS 0.5 MG/2.5 ML AMPUL.NEB NEB ONE (15:00)
[2019-10-27] MEDS ORDERED: ALBUTEROL FS 2.5 MG/3 ML VIAL.NEB CONTNEB ONE (15:00)
--- NOTE | 2019-10-27 15:01 | NUR ---
IV LINE ESTABLISHED, BLOOD DRAWN AND SENT TO LAB.
[2019-10-27 15:06] LABS: BASOPHILS % (AUTO) 0.4 % (0.0-2.0); EOSINOPHILS % (AUTO) 1.3 % (0.0-6.0); HEMATOCRIT 47 % (33-45); HEMOGLOBIN 15.9 g/dL (11.5-14.8); LYMPHOCYTES # (AUTO) 0.9 /CMM (0.8-4.8); LYMPHOCYTES % (AUTO) 12.1 % (20.0-44.0); MEAN CORPUSCULAR HGB CONC 34 g/dl (31.0-36.0); MEAN CORPUSCULAR VOLUME 95 fL (82-100); MONOCYTES # (AUTO) 0.8 /CMM (0.1-1.30); MONOCYTES % (AUTO) 11.1 % (2.0-12.0); NEUTROPHILS # (AUTO) 5.3 /CMM (1.8-8.9); NEUTROPHILS % (AUTO) 75.1 % (43.0-81.0); PLATELET COUNT (AUTO) 202 /CMM (150-450); RED BLOOD CELL COUNT(AUTO) 4.94 MIL/uL (4.0-5.2); WHITE BLOOD COUNT (AUTO) 7.1 K/uL (4.3-11.0)
[2019-10-27 15:20] LABS: CALCIUM, SERUM 8.8 mg/dL (8.5-10.1); CARBON DIOXIDE 36 mmol/L (21-32); CHLORIDE 97 mmol/L (98-107); CREATININE 0.7 mg/dL (0.6-1.3); GLUCOSE 92 mg/dL (74-106); POTASSIUM 3.8 mmol/L (3.5-5.1); SODIUM SERUM 137 mmol/L (136-145); UREA NITROGEN, BLOOD 18 mg/dL (7-18)
[2019-10-27] MEDS ORDERED: IPRATROPIUM NEB FS 0.5 MG/2.5 ML AMPUL.NEB ONE (15:20)
[2019-10-27] MEDS ORDERED: ALBUTEROL FS 2.5 MG/3 ML VIAL.NEB ONE (15:20)
--- NOTE | 2019-10-27 15:22 | NUR ---
RT AT BEDSIDE FOR BREATHING TREATMENT.
[2019-10-27 15:28] LABS: APPEARANCE,URINE Clear (CLEAR); BILIRUBIN,URINE Negative (NEGATIVE); BLOOD, URINE Trace-intact Ery/uL (NEGATIVE); COLOR,URINE Yellow (YELLOW); KETONES,URINE Negative (NEGATIVE); LEUKOCYTE ESTERASE ,URINE Negative (NEGATIVE); NITRITE, URINE Negative (NEGATIVE); PROTEIN,URINE Negative (NEGATIVE); UGLUCOSE Negative (NEGATIVE); UROBILINOGEN,URINE 0.2 EU/dL (0.2)
[2019-10-27 15:31] LABS: ALCOHOL, BLOOD < 3 mg/dL (0-0)
[2019-10-27 15:39] LABS: BACTERIA,URINE Few /HPF (None Seen); RBC,URINE 0-2 /HPF (0-2); SQUAMOUS EPITHELIAL CELL,UR Few /HPF (None Seen); WBC,URINE 0-2 /HPF (0-3)
[2019-10-27 15:51] LABS: THYROID STIMULATING HORMONE 0.828 uIU/mL (0.358-3.74)
--- NOTE | 2019-10-27 16:15 | NUR ---
FRAME WIRER met with the pt. bedside. Pt is alert and oriented x 4. Pt has pressured speech. Pt. states she resides at [facility] and wants to go back there. Pt. had her belongings with her. Pt denies being suicidal and homicidal. Pt has a history of psychiatric diagnosis and was taking Invega and Cymbalta. FRAME WIRER informed pt. to follow up with her primary care physician and psychiatrist regarding medication management. Pt is ambulatory. Pt. kept requesting to go out to smoke. Pt. will be discharged back to [facility] once medically cleared.
--- NOTE | 2019-10-27 16:37 | NUR ---
CALLED [facility] FOR TRANSPORT TO [facility]. ETA 190.
--- NOTE | 2019-10-27 17:05 | NUR ---
CALLED KATHERINE FOR TRANSPORT TO [facility]. ETA 1830 TRIP [id number]
--- NOTE | 2019-10-27 17:46 | NUR ---
CALLED [facility] AND SPOKE WITH JOSEPH. STATES THAT IT IS NOT OKAY FOR PT TO BE TRANSFERRED BY [facility]. NEEDS AMBULANCE.
[2019-10-27] MEDS ORDERED: ONDANSETRON 4 MG TAB.RAPDIS ONE (18:17)
[2019-10-27] MEDS ORDERED: ONDANSETRON 4 MG TAB.RAPDIS SL ONE (18:30)
--- NOTE | 2019-10-27 19:05 | NUR ---
REPORT GIVEN TO EMS FOR PT TRANSFER BACK TO [facility].
[2019-10-27 19:06] VITALS: BP 128/68
== END 2019-10-27 19:06 | disposition home or self-care (01) ==
LOC: ER 14:22
DX: F43.0 Acute stress reaction (principal); R45.1 Restlessness and agitation; R45.87 Impulsiveness; F41.9 Anxiety disorder, unspecified; I10 Essential (primary) hypertension; J44.9 Chronic obstructive pulmonary disease, unspecified; F29 Unspecified psychosis not due to a substance or known physiological condition; F20.9 Schizophrenia, unspecified; F17.200 Nicotine dependence, unspecified, uncomplicated; Z98.890 Other specified postprocedural states; Z98.51 Tubal ligation status; Z88.0 Allergy status to penicillin; Z88.8 Allergy status to other drugs, medicaments and biological substances; Z79.899 Other long term (current) drug therapy
CPT/HCPCS: 36415; 80048; 80305; 80307; 81001; 84443; 85025; 93005; 94640 ×2; 96374; 99284; 99406; J1100; J7512; Q0162; 81000-TC; G0480

== ENCOUNTER 2019-11-02 13:00 | Emergency (ER) | payer MEDICAID ==
[~2019-11-02] VITALS: Ht 162.6 cm; Wt 57.2 kg
--- NOTE | 2019-11-02 13:00 | NUR ---
pt paxton PAUL frm a board and care. per report, pt is verbalizing SI for 2 days now. upon initial assessment pt is denying SI/HI. denies any medical complaint seating captain and is requesting to go outside and smoke a cigarette. pt placed roomed. stable vitals. awaiting md neff.
--- NOTE | 2019-11-02 13:12 | NUR ---
lab coordinator at bedside for blood draw.
--- NOTE | 2019-11-02 13:13 | NUR ---
mirella oleary at bedside for eval.
[2019-11-02 13:24] LABS: BASOPHILS % (AUTO) 0.6 % (0.0-2.0); EOSINOPHILS % (AUTO) 1.5 % (0.0-6.0); HEMATOCRIT 47 % (33-45); HEMOGLOBIN 15.5 g/dL (11.5-14.8); LYMPHOCYTES # (AUTO) 0.7 /CMM (0.8-4.8); LYMPHOCYTES % (AUTO) 13.1 % (20.0-44.0); MEAN CORPUSCULAR HGB CONC 33 g/dl (31.0-36.0); MEAN CORPUSCULAR VOLUME 96 fL (82-100); MONOCYTES # (AUTO) 0.7 /CMM (0.1-1.30); NEUTROPHILS # (AUTO) 3.9 /CMM (1.8-8.9); NEUTROPHILS % (AUTO) 71.8 % (43.0-81.0); PLATELET COUNT (AUTO) 192 /CMM (150-450); RED BLOOD CELL COUNT(AUTO) 4.85 MIL/uL (4.0-5.2); WHITE BLOOD COUNT (AUTO) 5.4 K/uL (4.3-11.0)
[2019-11-02 13:34] LABS: APPEARANCE,URINE Clear (CLEAR); BILIRUBIN,URINE Negative (NEGATIVE); BLOOD, URINE Negative Ery/uL (NEGATIVE); COLOR,URINE Yellow (YELLOW); KETONES,URINE Negative (NEGATIVE); LEUKOCYTE ESTERASE ,URINE Negative (NEGATIVE); NITRITE, URINE Negative (NEGATIVE); PROTEIN,URINE Negative (NEGATIVE); UGLUCOSE Negative (NEGATIVE); UROBILINOGEN,URINE 0.2 EU/dL (0.2)
[2019-11-02 13:35] LABS: CALCIUM, SERUM 8.8 mg/dL (8.5-10.1); CARBON DIOXIDE 36 mmol/L (21-32); CHLORIDE 96 mmol/L (98-107); CREATININE 0.6 mg/dL (0.6-1.3); GLUCOSE 110 mg/dL (74-106); POTASSIUM 4.4 mmol/L (3.5-5.1); SODIUM SERUM 135 mmol/L (136-145); UREA NITROGEN, BLOOD 22 mg/dL (7-18)
[2019-11-02 13:40] LABS: ACETAMINOPHEN 0 ug/ml (10-30); ALANINE AMINOTRANSFERASE 25 U/L (12-78); ALBUMIN 3.3 g/dL (3.4-5.0); ALCOHOL, BLOOD < 3 mg/dL (0-0); ALKALINE PHOSPHATASE 76 U/L (46-116); ASPARTATE AMINOTRANSFERASE 15 U/L (15-37); BILIRUBIN,DIRECT 0.1 mg/dL (0.0-0.2); BILIRUBIN,TOTAL 0.2 mg/dL (0.2-1.0); TOTAL PROTEIN, SERUM 6.5 g/dL (6.4-8.2)
[2019-11-02] MEDS ORDERED: IBUP-1955 PO (13:48)
[2019-11-02] MEDS ORDERED: LISI10TA5 PO (13:48)
[2019-11-02] MEDS ORDERED: CLON1TAB12 PO (13:48)
[2019-11-02] MEDS ORDERED: PALI234D IM (13:48)
[2019-11-02] MEDS ORDERED: TRIH2TAB3 PO (13:48)
[2019-11-02] MEDS ORDERED: ALBUTEROL FS 2.5 MG/3 ML VIAL.NEB CONTNEB ONE (14:00)
[2019-11-02] MEDS ORDERED: IPRATROPIUM NEB FS 0.5 MG/2.5 ML AMPUL.NEB NEB ONE (14:00)
[2019-11-02] MEDS ORDERED: ALBUTEROL FS 2.5 MG/3 ML VIAL.NEB ONE (14:02)
[2019-11-02] MEDS ORDERED: IPRATROPIUM NEB FS 0.5 MG/2.5 ML AMPUL.NEB ONE (14:02)
--- NOTE | 2019-11-02 14:35 | NUR ---
[facility] [phone]
--- NOTE | 2019-11-02 14:38 | NUR ---
jose avalos at bedside for eval.
--- NOTE | 2019-11-02 15:00 | NUR ---
Social service consult requested by MD for a suicidal ideations. SILVERWARE ETCHER met with the pt. bedside. SILVERWARE ETCHER is familiar with the pt. from last week when pt came to the ED wanting her presciption of Cymbalta. Pt is rambling with pressured, rapid speech. She is loud with gestures when speaking but she is harmless. Her mood is elevated and she was cooperative, and alert and oriented x 4. Pt. states she resides at [facility] [place] [address] [address] and wants to go back there. Pt. had her belongings with her. Pt denies being suicidal and homicidal. CHRISTIAN Rowell was present in the room as well. Pt has a history of Schizophrenia. Pt reports that she takes Invega and wants to get back on her Cymbalta for depression. SILVERWARE ETCHER informed pt. to follow up with her psychiatrist and [facility] . Pt stated, she will see her psychiatrist in 2 weeks. Pt is ambulatory. Pt is a smoker and left the ED several times to go out to smoke. MONET updated MD regarding pt. denying suicidal and homicidal ideations. Pt. will be discharged back to [facility] once medically cleared. Pt will need transport back to her facility.
--- NOTE | 2019-11-02 15:14 | NUR ---
CALLED MANAN LEE ETA IS [phone]
[2019-11-02 16:21] VITALS: BP 110/70
--- NOTE | 2019-11-02 16:21 | NUR ---
Patient discharged to home in stable condition. Written and verbal after care instructions given. Patient verbalizes understanding of instruction. DC with the facility's staff
== END 2019-11-02 16:22 | disposition home or self-care (01) ==
LOC: ER 13:01
DX: R45.851 Suicidal ideations (principal); J44.9 Chronic obstructive pulmonary disease, unspecified; R79.89 Other specified abnormal findings of blood chemistry; F31.9 Bipolar disorder, unspecified; F20.9 Schizophrenia, unspecified; I10 Essential (primary) hypertension; F17.200 Nicotine dependence, unspecified, uncomplicated; Z98.890 Other specified postprocedural states; Z98.51 Tubal ligation status; Z88.0 Allergy status to penicillin; Z88.8 Allergy status to other drugs, medicaments and biological substances; Z79.899 Other long term (current) drug therapy
CPT/HCPCS: 36415; 80048; 80076; 80305; 80307; 80329; 81001; 85025; 94640; 99284; G0480; 81000-TC

== ENCOUNTER 2020-01-26 11:52 | Emergency (ER) | payer MEDICAID ==
[~2020-01-26] VITALS: Ht 167.6 cm; Wt 68.0 kg
[~2020-01-26 11:52] MED LIST changes: -ALBU18HF2 IH; -BUDE0.5A IH; +CLON1TAB12 PO; -DOCU-141 PO; -DULO20CA PO; -HYDR-500 PO; +IBUP-1955 PO; +LISI10TA5 PO; -LORA0.5T PO; -MONT10TA22 PO; -NICO-676 TD; +PALI234D IM; -PANT40TA2 PO; -PROM6.256 PO; -RISP2TAB PO; -RISP2TAB23 PO; -TOPI50TA24 PO; +TRIH2TAB3 PO
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
[2020-01-26] MEDS ORDERED: FURO-145 PO (12:35)
[2020-01-26] MEDS ORDERED: ALBU8.5H8 IH (12:35)
[2020-01-26] MEDS ORDERED: ALEN70TA6 PO (12:35)
[2020-01-26] MEDS ORDERED: POTA8TAB3 PO (12:35)
[2020-01-26] MEDS ORDERED: LORA-259 PO (12:35)
[2020-01-26] MEDS ORDERED: ASPI-1152 PO (12:35)
[2020-01-26] MEDS ORDERED: NA P133E RC (12:35)
[2020-01-26] MEDS ORDERED: MAGN250T2 PO (12:35)
[2020-01-26] MEDS ORDERED: METO25TA20 PO (12:35)
[2020-01-26] MEDS ORDERED: OMEP1CAP24 PO (12:35)
[2020-01-26] MEDS ORDERED: MIRT15TA7 PO (12:35)
[2020-01-26] MEDS ORDERED: CETI10TA14 PO (12:35)
[2020-01-26] MEDS ORDERED: FAMO20TA8 PO (12:35)
[2020-01-26] MEDS ORDERED: APIX2.5T PO (12:35)
[2020-01-26] MEDS ORDERED: SENN1TAB59 PO (12:35)
[2020-01-26] MEDS ORDERED: CITA10TA9 PO (12:35)
[2020-01-26] MEDS ORDERED: ACET-868 PO (12:35)
[2020-01-26] MEDS ORDERED: LEVO50TA8 PO (12:35)
--- NOTE | 2020-01-26 12:36 | NUR ---
urine sample sent to lab
[2020-01-26 12:46] LABS: BASOPHILS # (AUTO) 0.1 /CMM (0.0-0.2); BASOPHILS % (AUTO) 1.1 % (0.0-2.0); HEMATOCRIT 48 % (33-45); HEMOGLOBIN 16.3 g/dL (11.5-14.8); LYMPHOCYTES % (AUTO) 14.2 % (20.0-44.0); MEAN CORPUSCULAR HGB CONC 34 g/dl (31.0-36.0); MEAN CORPUSCULAR VOLUME 96 fL (82-100); MONOCYTES # (AUTO) 0.8 /CMM (0.1-1.30); MONOCYTES % (AUTO) 11.8 % (2.0-12.0); NEUTROPHILS # (AUTO) 4.8 /CMM (1.8-8.9); NEUTROPHILS % (AUTO) 70.9 % (43.0-81.0); PLATELET COUNT (AUTO) 185 /CMM (150-450); RED BLOOD CELL COUNT(AUTO) 4.98 MIL/uL (4.0-5.2); WHITE BLOOD COUNT (AUTO) 6.7 K/uL (4.3-11.0)
[2020-01-26 12:47] LABS: APPEARANCE,URINE Clear (CLEAR); COLOR,URINE Yellow (YELLOW); KETONES,URINE Negative (NEGATIVE); LEUKOCYTE ESTERASE ,URINE Negative (NEGATIVE); NITRITE, URINE Negative (NEGATIVE); PROTEIN,URINE Negative (NEGATIVE); UGLUCOSE Negative (NEGATIVE); UROBILINOGEN,URINE 0.2 EU/dL (0.2)
[2020-01-26 12:48] LABS: BLOOD, URINE NEGATIVE Ery/uL (NEGATIVE)
[2020-01-26 12:49] LABS: BILIRUBIN,URINE TRACE (NEGATIVE)
[2020-01-26 12:50] LABS: BACTERIA,URINE None seen /HPF (None Seen); WBC,URINE 0-2 /HPF (0-3)
[2020-01-26 12:51] LABS: SQUAMOUS EPITHELIAL CELL,UR Few /HPF (None Seen)
[2020-01-26 12:52] LABS: CALCIUM, SERUM 9.2 mg/dL (8.5-10.1); CARBON DIOXIDE 38 mmol/L (21-32); CHLORIDE 96 mmol/L (98-107); CREATININE 0.6 mg/dL (0.6-1.3); GLUCOSE 109 mg/dL (74-106); POTASSIUM 3.6 mmol/L (3.5-5.1); SODIUM SERUM 137 mmol/L (136-145); UREA NITROGEN, BLOOD 14 mg/dL (7-18)
[2020-01-26 12:58] LABS: ALANINE AMINOTRANSFERASE 34 U/L (12-78); ALBUMIN 3.6 g/dL (3.4-5.0); ALCOHOL, BLOOD < 3 mg/dL (0-0); ALKALINE PHOSPHATASE 90 U/L (46-116); ASPARTATE AMINOTRANSFERASE 19 U/L (15-37); BILIRUBIN,DIRECT 0.1 mg/dL (0.0-0.2); BILIRUBIN,TOTAL 0.3 mg/dL (0.2-1.0); SALICYLATE 2.8 mg/dL (2.8-20.0); TOTAL PROTEIN, SERUM 7.3 g/dL (6.4-8.2)
[2020-01-26] MEDS ORDERED: OLANZAPINE 10 MG VIAL IM ONE (13:42)
[2020-01-26] MEDS: OLANZAPINE 10 MG VIAL IM ONE (13:47)
[2020-01-26 13:48] LABS: ACETAMINOPHEN 0 ug/ml (10-30)
--- NOTE | 2020-01-26 14:22 | NUR ---
PATIENT IN BED ASLEEP, EASILY AROUSABLE BY VOICE. WILL CONTINUE TO MONITOR
--- NOTE | 2020-01-26 15:48 | NUR ---
PATIENT INSISTING TO GO OUT TO SMOKE. INFORMED MD. SAYS "IT'S OK", -SI/HI
--- NOTE | 2020-01-26 15:49 | NUR ---
PROVIDED PATIENT WITH DISADVANTAGES OF SMOKING, STILL INSISTED TO GO OUT.
--- NOTE | 2020-01-26 16:05 | NUR ---
COUNTY SURVEYOR LIYAH JIN AT BEDSIDE
--- NOTE | 2020-01-26 17:24 | NUR ---
[facility] RESIDENTIAL DESIGNER AT 193
--- NOTE | 2020-01-26 18:20 | NUR ---
PATIENT IN BED AWAKE, HOOKED TO MONITOR, WILL CONTINUE TO MONITOR ACCORDINGLY
--- NOTE | 2020-01-26 18:44 | NUR ---
SPOKE TO CARRIE (AG EQUIPMENT FIELD SERVICE TECHNICIAN OF [facility]), PER CARRIE, SHE INFORMED INTERLINE CLERK RADHA ARAGON THAT PATIENT IS GOING BACK TO THE FACILITY.
--- NOTE | 2020-01-26 19:17 | NUR ---
REPORT GIVEN TO FACILITY, AWAITING TRANSPORT.
--- NOTE | 2020-01-26 19:37 | NUR ---
Patient ppikeup by [facility] [address] in stable condition. Patient will be brought back to [facility]. Written and verbal after care instructions given. Patient verbalizes understanding of instruction.
[2020-01-26 19:39] VITALS: BP 142/91
== END 2020-01-26 19:40 ==
LOC: ER 11:54
DX: F23 Brief psychotic disorder (principal); I10 Essential (primary) hypertension; J44.9 Chronic obstructive pulmonary disease, unspecified; Z98.890 Other specified postprocedural states; Z88.0 Allergy status to penicillin; Z98.51 Tubal ligation status; Z88.8 Allergy status to other drugs, medicaments and biological substances; Z79.899 Other long term (current) drug therapy; Z79.82 Long term (current) use of aspirin
CPT/HCPCS: 36415; 80048; 80076; 80305; 80307; 80329; 81001; 85025; 96372; 99285; G0480; J3490; 81000-TC

== ENCOUNTER 2020-04-01 12:16 | Inpatient (IN) | payer MEDICAID ==
[~2020-04-01] VITALS: Ht 165.1 cm; Wt 59.0 kg
[~2020-04-01 12:16] MED LIST changes: +ACET-868 PO; +ALBU8.5H8 IH; +ALEN70TA6 PO; +APIX2.5T PO; +ASPI-1152 PO; +CETI10TA14 PO; +CITA10TA9 PO; -CLON1TAB12 PO; +FAMO20TA8 PO; -FLUT16SP16 BNOSTRILS; +FURO-145 PO; -HYDR12.55 PO; -IBUP-1955 PO; +LEVO50TA8 PO; -LISI10TA5 PO; +LORA-259 PO; +MAGN250T2 PO; +METO25TA20 PO; +MIRT15TA7 PO; +NA P133E RC; +OMEP1CAP24 PO; -PALI234D IM; +POTA8TAB3 PO; +SENN1TAB59 PO; -TRIH2TAB3 PO
--- NOTE | 2020-04-01 12:33 | NUR ---
CALLING CNC OPERATOR MACHINIST FOR PLACEMENT. SPOKE TO MARGE.
--- NOTE | 2020-04-01 12:43 | NUR ---
PT AMBULATED TO THE BATHROOM WITH HER WALKER. PT IS TRYING TO GIVE A URINE SAMPLE.
--- NOTE | 2020-04-01 12:50 | NUR ---
URINE SAMPLE OBTAINED AND SENT TO LAB. AIR BRAKE OPERATOR IS AT THE BEDSIDE FOR BLOOD DRAW.
[2020-04-01 12:59] LABS: BASOPHILS # (AUTO) 0.1 /CMM (0.0-0.2); BASOPHILS % (AUTO) 1.2 % (0.0-2.0); EOSINOPHILS % (AUTO) 2.9 % (0.0-6.0); HEMATOCRIT 45 % (33-45); HEMOGLOBIN 14.9 g/dL (11.5-14.8); LYMPHOCYTES # (AUTO) 0.9 /CMM (0.8-4.8); MEAN CORPUSCULAR HGB CONC 33 g/dl (31.0-36.0); MEAN CORPUSCULAR VOLUME 97 fL (82-100); MONOCYTES # (AUTO) 0.6 /CMM (0.1-1.30); MONOCYTES % (AUTO) 11.8 % (2.0-12.0); NEUTROPHILS # (AUTO) 3.4 /CMM (1.8-8.9); NEUTROPHILS % (AUTO) 67.1 % (43.0-81.0); PLATELET COUNT (AUTO) 169 /CMM (150-450); RED BLOOD CELL COUNT(AUTO) 4.64 MIL/uL (4.0-5.2)
[2020-04-01 13:01] LABS: BILIRUBIN,URINE Negative (NEGATIVE); BLOOD, URINE Trace-intact Ery/uL (NEGATIVE); COLOR,URINE Yellow (YELLOW); KETONES,URINE Negative (NEGATIVE); LEUKOCYTE ESTERASE ,URINE Negative (NEGATIVE); NITRITE, URINE Negative (NEGATIVE); PROTEIN,URINE Negative (NEGATIVE); UGLUCOSE Negative (NEGATIVE); UROBILINOGEN,URINE 0.2 EU/dL (0.2)
[2020-04-01 13:02] LABS: APPEARANCE,URINE SLIGHTLY HAZY (CLEAR)
[2020-04-01 13:06] LABS: BACTERIA,URINE None seen /HPF (None Seen); SQUAMOUS EPITHELIAL CELL,UR Few /HPF (None Seen); WBC,URINE 0-1 /HPF (0-3)
[2020-04-01 13:08] LABS: CALCIUM, SERUM 8.8 mg/dL (8.5-10.1); CARBON DIOXIDE 35 mmol/L (21-32); CHLORIDE 97 mmol/L (98-107); CREATININE 0.7 mg/dL (0.6-1.3); GLUCOSE 88 mg/dL (74-106); POTASSIUM 3.8 mmol/L (3.5-5.1); SODIUM SERUM 133 mmol/L (136-145); UREA NITROGEN, BLOOD 17 mg/dL (7-18)
[2020-04-01 13:13] LABS: ACETAMINOPHEN 1 ug/ml (10-30); ALANINE AMINOTRANSFERASE 20 U/L (12-78); ALBUMIN 3.6 g/dL (3.4-5.0); ALCOHOL, BLOOD < 3 mg/dL (0-0); ALKALINE PHOSPHATASE 63 U/L (46-116); ASPARTATE AMINOTRANSFERASE 14 U/L (15-37); BILIRUBIN,DIRECT 0.1 mg/dL (0.0-0.2); BILIRUBIN,TOTAL 0.3 mg/dL (0.2-1.0); TOTAL PROTEIN, SERUM 6.5 g/dL (6.4-8.2)
[2020-04-01 13:14] LABS: SALICYLATE 2.2 mg/dL (2.8-20.0)
--- NOTE | 2020-04-01 13:21 | NUR ---
CASE MANAGEMENT CALLED FOR PLACEMENT
--- NOTE | 2020-04-01 13:21 | NUR ---
CASE MANAGEMENT WAS CALLED RE: PLACEMENT
[2020-04-01] MEDS ORDERED: ALBUTEROL SULFATE INH 18 GM HFA.AER.AD IH PRN (13:30)
[2020-04-01] MEDS ORDERED: FLUTICASONE PROPIONATE 16 GM BOTTLE NS SCH (13:30)
--- NOTE | 2020-04-01 13:30 | NUR ---
PT REC'D FOOD TRAY. JUICE, 2 BOXES OF TISSUES.
--- NOTE | 2020-04-01 14:08 | NUR ---
PT AMBULATED TO THE BATHROOM WITH A STEADY GAIT. BATCH MIXER OPERATOR ARRIVED AND WILL TALK TO THE PT WHEN SHE RETURNS TO ER 7.
--- NOTE | 2020-04-01 14:09 | NUR ---
RT CALLED RE: BREATHING TX.
--- NOTE | 2020-04-01 14:11 | NUR ---
PT WALKED TO THE NURSES STATION TO SAY THAT SHE WAS GOING OUTSIDE TO CALL HER DAUGHTER BECAUSE IT WAS BETTER PHOTO EQUIPMENT TECHNICIAN. PT WAS TOLD THAT SHE WAS NOT ABLE TO GO OUT TO SMOKE AT THIS TIME. PT AMBULATED BACK TO ER 7 WITH A STEADY GAIT.
--- NOTE | 2020-04-01 14:19 | NUR ---
MARGE, BALLOON TESTER, IS AT THE BEDSIDE SPEAKING TO THE PT.
--- NOTE | 2020-04-01 14:19 | NUR ---
PT CALLED AND WANTED TO BE RECONNECTED TO THE MONITOR AND POX.
--- NOTE | 2020-04-01 14:20 | NUR ---
LAVERNE CONSULT: Ham Stringer conducted addiction social worker consult per 's request to evaluate the pt's current living situation as the pt is requesting a change in placement. Pt reported she is currently residing in [facility] assisted living facility, where she is very unhappy for a variety of reasons such as: not having her own room, not having AC, poor nurse to patient ratio, feeling uncared for. Pt reported she would like to return to her previous placement at [facility], and asked LAVERNE to contact her daughter to help with this matter. Pt gave verbal consent for LAVERNE to contact her daughter, Laurita ([phone]) to discuss discharge planning with her. LAVERNE left a voicemail for Laurita, instructing her to call LAVERNE back. As of 1632, she has not returned the call. LAVERNE consulted with Rail Car Operator, Anna about this case. Anna reported the pt will need to return to her previous facility and endorsed this to the pt's nurse.
[2020-04-01] MEDS ORDERED: ALBUTEROL FS 2.5 MG/0.5 ML VIAL.NEB ONE (14:25)
--- NOTE | 2020-04-01 14:25 | NUR ---
BREATHING TX STARTED. DOOR TO ROOM CLOSED TO PREVENT.
--- NOTE | 2020-04-01 15:09 | NUR ---
PT LEFT THROUGH THE EMERGENCY DOOR AND CAME BACK TO ER 7.
--- NOTE | 2020-04-01 15:11 | NUR ---
PT WAS MOVED FROM ER 7 TO ER 15.
--- NOTE | 2020-04-01 15:40 | NUR ---
CALLING PETRA ELISE LCSW RE: QUESTION. VOICE MESSAGE LEFT.
--- NOTE | 2020-04-01 15:42 | NUR ---
ORDERED FOOD TRAY FOR PT.
--- NOTE | 2020-04-01 15:55 | NUR ---
PT REC'D FOOD TRAY AND 3 DIET SODA.
--- NOTE | 2020-04-01 16:40 | NUR ---
CALL FROM DAVID, PATIENT IS AUTHORIZED TO STAY IF ER MD HAS A REASON FOR ADMISSION. WANTS FACESHEET AND CLINICALS FAXED WHEN ADMITTED
--- NOTE | 2020-04-01 16:53 | NUR ---
PT AMBULATED OUT WITH A STEADY GAIT TO SMOKE. PT WAS ACCOMPANIED BY SECURITY.
--- NOTE | 2020-04-01 17:01 | NUR ---
BED 113
--- NOTE | 2020-04-01 17:08 | NUR ---
PAGED [facility].
--- NOTE | 2020-04-01 17:15 | NUR ---
ALEXANDER ORDOÑEZ NP ACCEPTING
[2020-04-01] MEDS ORDERED: LIDO700A30 TP (17:24)
[2020-04-01] MEDS ORDERED: AMLO2.5T2 PO (17:24)
[2020-04-01] MEDS ORDERED: DOCU-141 PO (17:24)
[2020-04-01] MEDS ORDERED: ACET1TAB23 PO (17:24)
[2020-04-01] MEDS ORDERED: TRIH2TAB3 PO (17:24)
[2020-04-01] MEDS ORDERED: MAGN400O6 PO (17:24)
[2020-04-01] MEDS ORDERED: CYCL5TAB PO (17:24)
[2020-04-01] MEDS ORDERED: OLAN10TA3 PO (17:24)
[2020-04-01] MEDS ORDERED: LISI10TA5 PO (17:24)
[2020-04-01] MEDS ORDERED: HYDR25TA4 PO (17:24)
[2020-04-01] MEDS ORDERED: RISP0.5T20 PO (17:24)
[2020-04-01] MEDS ORDERED: CLON1TAB12 PO (17:24)
--- NOTE | 2020-04-01 17:27 | NUR ---
REPORT GIVEN TO DESTINEY GONZALES FOR DAJUAN
--- NOTE | 2020-04-01 17:30 | NUR ---
RN CLOSING NOTES PATIENT IS IN BED COMFORTABLY. A/O X4 ON RA , SAT @ 95%. NO s/s OF RESPIRATORY DISTRESS. ADMITTED PATIENT FROM ER , NO IV SITE. SAFETY MEASURES IMPLEMENTED, BED LOCKED AND IN LOWEST POSITION. CALL LIGHT WITHIN EASY REACH. WILL ENDORSE TO PM NURSE FOR DAJUAN.
[2020-04-01 18:08] VITALS: BP 121/78
--- NOTE | 2020-04-01 19:15 | NUR ---
RN NOTES RECEIVED PATIENT SITTING UP IN BED RESTING. BREATHING EVEN AND NON LABORED. NO SOB NOTED AT THIS TIME. A&O X3. ABLE TO MAKE NEEDS KNOWN. IN NO APPARENT DISTRESS NOTED AT THIS TIME. PER LAB RESULTS, PATIENT IS COVID NEGATIVE. SKIN IS INTACT. NO IV SITE ON PATIENT. PATIENT IS AMBULATORY, GAIT IS STEADY. CALL LIGHT IS WITHIN EASY REACH. WILL CONTINUE TO MONITOR.
[2020-04-01] MEDS ORDERED: CYCLOBENZAPRINE 10 MG TABLET PO PRN (19:30)
[2020-04-01] MEDS ORDERED: ALBUTEROL FS 2.5 MG/0.5 ML VIAL.NEB NEB PRN (19:30)
[2020-04-01] MEDS: TRIHEXYPHENIDYL HCL 2 MG TABLET PO SCH ×2 (19:30→20:36)
[2020-04-01 20:00] VITALS: BP_SYST 105; BP_SYST 123; BP_DIAS 70; BP_DIAS 79
[2020-04-01 20:07] VITALS: BP 123/79
[2020-04-01] MEDS: CLINDAMYCIN HCL 150 MG CAPSULE PO SCH (20:36)
--- NOTE | 2020-04-01 20:45 | NUR ---
RN NOTE PATIENT REFUSED ARTANE MED AT THIS TIME. EXPLAINED RISKS OF NOT TAKING MED, STILL PATIENT REFUSED. PATIENT IS A&O X3. WILL CONTINUE TO MONITOR.
--- NOTE | 2020-04-01 20:55 | NUR ---
RN NOTE PATIENT TRANSFERRED TO MED SURG 2 ROOM 204 IN STABLE CONDITION. REPORT GIVEN TO ANN GONZALES FOR CONTINUATION OF CARE.
--- NOTE | 2020-04-01 20:58 | NUR ---
MS/RN JC TRANSFER NOTES: PT ARRIVED TO THE UNIT AT 2056, IN STABLE CONDITION VIA WHEELCHAIR. PT IS A/OX4. COVID (-). VERBALLY RESPONSIVE AND ABLE TO MAKE NEEDS KNOWN. AMBULATORY AND STEADY GAIT. SKIN INTACT. ALL BELONGINGS ARE AT BEDSIDE. NO SOB NOTED. NO S/S OF ACUTE DISTRESS. NO C/O PAIN AT THIS TIME. ORIENTED TO ROOM, UNIT AND STAFF. ON ROOM AIR SATURATING WELL AT 97%. INITIAL VS TAKEN. WNL AND STABLE. PT HAS NO IV SITE NOTED. WILL INSERT AN IV SITE. SAFETY MEASURES INITIATED. BED IS IN LOW, LOCKED POSITION WITH SR UP X2. CALL LIGHT WITHIN REACH. WILL CONTINUE TO MONITOR ACCORDINGLY.
[2020-04-01 21:00] VITALS: BP 105/70
[2020-04-01 21:30] VITALS: BP_SYST 105; BP_SYST 131; BP_DIAS 70; BP_DIAS 93
[2020-04-01] MEDS: risperiDONE 0.25 MG TABLET PO SCH (22:00)
--- NOTE | 2020-04-01 23:40 | NUR ---
MS/RN NOTES: CLARIFIED WITH CHARGE NURSE FOR PT'S DIET ORDER. H&P HAS NO DIET SPECIFICATION. WILL CLARIFY IN THE MORNING AGAIN. [facility] DUE TO TYPE 2 DIABETES. CHARGE NURSE AWARE.
[2020-04-02] MEDS ORDERED: ALBUTEROL FS 2.5 MG/0.5 ML VIAL.NEB NEB PRN (01:30)
--- NOTE | 2020-04-02 06:50 | NUR ---
MS/RN NOTES: DVT PUMPS ORDER PLACED. CALLED [facility]EN[facility] TO BRING DOWN DVT PUMPS. ORDER FOR CHEMICAL PROPHYLAXIS ENDORSED TO DAY SHIFT RN TO F/U WITH THE DOCTOR.
--- NOTE | 2020-04-02 07:09 | NUR ---
MS/RN CLOSING NOTES: PT REMAINS IN STABLE CONDITION. SLEEPING IN BED COMFORTABLY. A/OX4. VERBALLY RESPONSIVE AND ABLE TO MAKE NEEDS KNOWN. AMBULATORY AND STEADY GAIT. NO SOB NOTED. NO S/S OF ACUTE DISTRESS. NO C/O PAIN AT THIS TIME. ON ROOM AIR SATURATING WELL AT 97%. IV SITE ON THE RIGHT HAND 22G. INTACT AND PATENT, FLUSHING WELL. SL. SAFETY MEASURES INITIATED. BED IS IN LOW, LOCKED POSITION WITH SR UP X2. CALL LIGHT WITHIN REACH. WILL ENDORSE TO DAY SHIFT FOR DAJUAN.
--- NOTE | 2020-04-02 07:22 | NUR ---
MS RN NOTES RECEIVED PT IN BED,ASLEEP, EASILY AROUSED, A/O X4. PT TOLERATING RA, WITH NO ACUTE RESPIRATORY DISTRESS NOTED. PT DENIES ANY PAIN OR DISCOMFORT AT THIS TIME. PIV RIGHT HAND G22, FLUSHED WITH NS, INTACT AND OPERATIONAL. PT KEPT COMFORTABLE IN BED. CALL LIGHT KEPT WITHIN REACH. PT'S BED IN LOWEST, LOCKED POSITION WITH SR X3. WILL CONTINUE PLAN OF CARE.
[2020-04-02 08:00] VITALS: BP 114/72
[2020-04-02] MEDS: DOCUSATE SODIUM 100 MG CAPSULE PO SCH ×2 (08:16→17:59)
[2020-04-02] MEDS: AMLODIPINE BESYLATE 2.5 MG TABLET PO SCH (08:17)
[2020-04-02] MEDS: LIDOCAINE 5% (PATCH) 1 EA PATCH TP SCH (08:17)
[2020-04-02] MEDS: OLANZAPINE 10 MG TABLET PO SCH (08:17)
[2020-04-02] MEDS: LISINOPRIL (10MG) 10 MG TABLET PO SCH (08:17)
[2020-04-02] MEDS: TRIHEXYPHENIDYL HCL 2 MG TABLET PO SCH ×2 (08:18→18:26)
[2020-04-02] MEDS: HYDROCHLOROTHIAZIDE 25 MG TABLET PO SCH (08:25)
[2020-04-02] MEDS: clonazePAM 1 MG TABLET PO SCH ×2 (08:25→17:59)
--- NOTE | 2020-04-02 08:26 | NUR ---
MS RN NOTES PT REFUSED HCTZ MEDICINE. RISKS AND BENEFITS MADE AWARE. AND CLONAZEPAM 1.5MG ORDERED BUT PT ONLY PREFERS TO TO TAKE 0.5MG. A TOTAL OF 1.5 MG WASTED AT THE MEDICINE BIN BY ANOTHER RN/SHANNEN HUFF. WILL CONTINUE TO MONITOR.
--- NOTE | 2020-04-02 09:15 | NUR ---
MS RN NOTES FAXED FACESHEET TO [facility] FOR CONSULT. PER ADMITTING/CC LAST NIGHT PT FOR "PSYCH CONSULT IN AM".
[2020-04-02] MEDS: CLINDAMYCIN HCL 150 MG CAPSULE PO SCH (09:29)
--- NOTE | 2020-04-02 09:45 | NUR ---
MS RN NOTES SEEN AND EVALUATED BY CM/ROME/ PT INFORMED CM REGARDING PREFERENCE FOR PLACEMENT.
--- NOTE | 2020-04-02 10:30 | NUR ---
MS RN NOTES PT SEEN AND EVALUATED BY MD/ED REGARDING PT'S PREFERENCE AND MEDICATION LIST FOR COPD, NICOTINE PATCH, BREATHING TREATMENTS, ANTIBIOTICS. PER MD/ED WILL REVIEW PT'S MEDICATION LIST. AND ORDERED TO PUT PAIN MANGT CONSULT WITH DR ALFRED. ORDER PLACED, AND PER MD/ED WILL XONTACT DR. ALFRED HIMSELF. WILL CONTINUE TO MONITOR.
[2020-04-02] MEDS ORDERED: POLYETHYLENE GLYCOL 3350 17 GM POWD.PACK PO PRN (12:30)
[2020-04-02] MEDS ORDERED: MAGNESIUM HYDROXIDE 30 ML UDC PO PRN (12:30)
--- NOTE | 2020-04-02 15:50 | NUR ---
MS RN NOTES RECEIVED CALL FROM [facility] , SPOKE TO SOREN/CHRISTIAN. VERIFIED FOR MEDICINES RISPERDAL AND ENVEGA (TAKEN BY PT LAST 03/29) TO BE DISCONTINUED AND TO CONTINUE CLONOPIN 1.5MG BID AND ZYPREXIA 10MG QD, PER DR DAI KING/PSYCHIATRIST. WILL ENDORSE TO INCOMING NIGHT NURSE FOR PSYCH CONSULT TONIGHT WITH DR LEON. WILL CONTINUE TO MONITOR PT.
[2020-04-02 16:09] VITALS: BP 110/72
[2020-04-02 18:00] VITALS: BP 104/66
--- NOTE | 2020-04-02 18:03 | NUR ---
MS RN NOTES PT WASESCORTED WHEN SMOKING OUTSIDE BY THE LINING PRINTER AND CAME BACK COMPLAINED SHE VOMITED AND UNABLE TO SWALLOW FOOD. PT JUST REQUESTED 3 DIET SODAS AND COFFEE BUT ABLE TO SWALLOW WITHOUT DIFFICULTY. PT ALSO STATING "I'M DYING WITH COPD", PT SATURATION AT RA [id number] WILL CONTINUE TO MONITOR.
--- NOTE | 2020-04-02 18:10 | NUR ---
MS RN NOTES PT STATED "I'M DYING BECAUSE OF COPD", "I NEED OXYGEN", VITALS TAKEN AND RECORDED. WILL ENDORSE TO INCOMING NIGHT NURSE WELL, TO FOLLOW UP WITH PSYCH CONSULT.
--- NOTE | 2020-04-02 18:36 | NUR ---
MS RN NOTES SCHEDULED CLONAZEPAM 1.5MG AT 1700, PT ONLY PREFERS TO TO TAKE 0.5MG. A TOTAL OF 1.5 MG WASTED AT THE MEDICINE BIN BY ANOTHER RN/SHANNEN HUFF. WILL ENDORSE TO INCOMING NIGHT NURSE FOR PSYCH/EDWARD CONSULT JOSELIN. PT MADE AWARE.
--- NOTE | 2020-04-02 18:40 | NUR ---
MS RN NOTES PT IN BED AWAKE, A/O X3-4. PT TOLERATING RA, WITH NO ACUTE RESPIRATORY DISTRESS NOTED. PT DENIES ANY PAIN OR DISCOMFORT AT THIS TIME. PIV RIGHT HAND G22, FLUSHED WITH NS, INTACT AND OPERATIONAL. PT KEPT COMFORTABLE IN BED. ALL NEEDS AND CARE ATTENDED. CALL LIGHT KEPT WITHIN REACH. PT'S BED IN LOWEST, LOCKED POSITION WITH SR X3. WILL ENDORSE TO INCOMING NIGHT NURSE FOR DAJUAN AND UPCOMING PSYCH CONSULT WITH DR. LEON.
--- NOTE | 2020-04-02 19:00 | NUR ---
MS/RN OPENING NOTES: RECEIVED IN BED RESTING. A/O X4. PT TOLERATING RA, WITH NO ACUTE RESPIRATORY DISTRESS NOTED. PT DENIES ANY PAIN OR DISCOMFORT AT THIS TIME. IV SITE LOCATED ON THE RIGHT HAND #22G, FLUSHED WITH NS, INTACT AND OPERATIONAL. PT KEPT COMFORTABLE IN BED. ALL NEEDS AND CARE ATTENDED. CALL LIGHT KEPT WITHIN REACH. PT'S BED IN LOWEST, LOCKED POSITION WITH SR X3. UPCOMING PSYCH CONSULT WITH DR. LEON. WILL CONTINUE TO MONITOR ACCORDINGLY.
[2020-04-02 20:00] VITALS: BP 104/68
[2020-04-02 20:10] VITALS: BP 104/68
[2020-04-02] MEDS: risperiDONE 0.25 MG TABLET PO SCH (22:00)
--- NOTE | 2020-04-03 01:24 | NUR ---
MS/RN NOTES: RECALCULATED VTE RISK SCORE WHICH IS NOW 4. DVT PUMPS ORDERED AND APPLIED. INFORMED DR. TYRA MERCADO AND OBTAIN CHEMICAL PROPHYLAXIS ORDER. LOVENOX 40MG SQ DAILY. WILL CONTINUE TO MONITOR ACCORDINGLY.
--- NOTE | 2020-04-03 07:15 | NUR ---
MS/RN CLOSING NOTES: PT REMAINS IN STABLE CONDITION. SLEEPING IN BED COMFORTABLY. A/OX4. VERBALLY RESPONSIVE AND ABLE TO MAKE NEEDS KNOWN. AMBULATORY AND STEADY GAIT. NO SOB NOTED. NO S/S OF ACUTE DISTRESS. NO C/O PAIN AT THIS TIME. ON ROOM AIR SATURATING WELL AT 97%. IV SITE ON THE RIGHT HAND 22G. INTACT AND PATENT, FLUSHING WELL. SL. PT WANTS TO SMOKE BUT I TOLD PT TO WAIT TIL LATER IN THE MORNING. SAFETY MEASURES INITIATED. BED IS IN LOW, LOCKED POSITION WITH SR UP X2. CALL LIGHT WITHIN REACH. WILL ENDORSE TO DAY SHIFT FOR DAJUAN.
--- NOTE | 2020-04-03 07:58 | NUR ---
MS RN OPENING NOTES Received Patient awake and ambulating in room. A/O x 4. VS stable with no acute distress. Breathing even and unlabored on room air with no respiratory distress. Denies pain. No signs and symptoms of pain. 22g PIV on Right Hand clean, intact, patent and flushing well. Safety precautions in place. Bed locked and set to lowest position with side rails x 2 up. All needs rendered at this time. Call light within reach. Will continue to monitor.
[2020-04-03 08:14] VITALS: BP 126/86
[2020-04-03] MEDS: TRIHEXYPHENIDYL HCL 2 MG TABLET PO SCH (08:19)
[2020-04-03] MEDS: DOCUSATE SODIUM 100 MG CAPSULE PO SCH (08:22)
[2020-04-03] MEDS: HYDROCHLOROTHIAZIDE 25 MG TABLET PO SCH (08:22)
[2020-04-03] MEDS: clonazePAM 1 MG TABLET PO SCH (08:23)
[2020-04-03 08:24] VITALS: BP 126/86
[2020-04-03] MEDS: AMLODIPINE BESYLATE 2.5 MG TABLET PO SCH (08:24)
[2020-04-03] MEDS: OLANZAPINE 10 MG TABLET PO SCH (08:24)
[2020-04-03] MEDS: LISINOPRIL (10MG) 10 MG TABLET PO SCH (08:24)
[2020-04-03] MEDS: LIDOCAINE 5% (PATCH) 1 EA PATCH TP SCH (08:27)
[2020-04-03] MEDS ORDERED: ENOXAPARIN SODIUM 40 MG/0.4 ML DISP.SYRIN SQ SCH (09:00)
[2020-04-03] MEDS ORDERED: METHOCARBAMOL (750MG) 750 MG TABLET PO SCH (09:30)
[2020-04-03] MEDS ORDERED: BISACODYL SUPP (10 MG) 10 MG/SUPP.RECT SUPP.RECT RC PRN (09:30)
--- NOTE | 2020-04-03 11:15 | NUR ---
MS RN AMA DISCHARGE NOTES Patient discharged AMA at this time. Explained risks of leaving AMA. Patient verbalized understanding and stated that she still wants to leave. Patient signed AMA form and placed in charge. A/O x 4. VS stable with no acute distress. Breathing even and unlabored on room air with no respiratory distress. Denies pain. No signs and symptoms of pain. Skin intact. All belongings with Patient. Escorted Patient to the Lobby for safety. Patient picked up by self ordered Taxi.
== END 2020-04-03 11:15 | disposition left against medical advice (07) | DRG 426 ==
LOC: ER 12:21 → MEDSG1 17:20 → MEDSG2 20:48
PROVIDERS: ADMIT Nurse Practitioner Acute Care; ATTEND Nurse Practitioner Acute Care
DX: E87.1 Hypo-osmolality and hyponatremia (principal); E86.9 Volume depletion, unspecified; E86.0 Dehydration; I10 Essential (primary) hypertension; J44.9 Chronic obstructive pulmonary disease, unspecified; F20.9 Schizophrenia, unspecified; Z79.899 Other long term (current) drug therapy; Z98.51 Tubal ligation status; Z88.0 Allergy status to penicillin; Z88.8 Allergy status to other drugs, medicaments and biological substances; Z79.51 Long term (current) use of inhaled steroids; Z79.82 Long term (current) use of aspirin; F29 Unspecified psychosis not due to a substance or known physiological condition; G89.4 Chronic pain syndrome; F41.9 Anxiety disorder, unspecified; F31.9 Bipolar disorder, unspecified; E86.1 Hypovolemia; E11.9 Type 2 diabetes mellitus without complications
CPT/HCPCS: 36415; 80048-TC; 80076-TC; 80305; 81000-TC; 85025-TC; 87081-TC; G0378; G0480; J1650

== ENCOUNTER 2020-04-14 10:51 | Emergency (ER) | payer MEDICAID ==
[~2020-04-14] VITALS: Ht 165.1 cm; Wt 59.0 kg
[~2020-04-14 10:51] MED LIST changes: +ACET1TAB23 PO; -ALEN70TA6 PO; +AMLO2.5T2 PO; -AMLO5TAB4 PO; -APIX2.5T PO; -ASPI-1152 PO; -CETI10TA14 PO; -CITA10TA9 PO; +CLON1TAB12 PO; +CYCL5TAB PO; +DOCU-141 PO; -FAMO20TA8 PO; -FURO-145 PO; +HYDR25TA4 PO; -LEVO50TA8 PO; +LIDO700A30 TP; +LISI10TA5 PO; -LORA-259 PO; -MAGN250T2 PO; +MAGN400O6 PO; -METO25TA20 PO; -MIRT15TA7 PO; -NA P133E RC; +OLAN10TA3 PO; -OMEP1CAP24 PO; -POTA8TAB3 PO; +RISP0.5T20 PO; -SENN1TAB59 PO; +TRIH2TAB3 PO
--- NOTE | 2020-04-14 10:51 | NUR ---
PT TARAS FROM [facility] C/O WEAKNESS AND COUGH SINCE YESTERDAY. PT IS AAOX4, NOT IN RESPIRATORY DISTRESS, HOOKED TO MONITOR, KEPT RESTED AND COMFORTABLE. WILL CONTINUE TO MONITOR.
--- NOTE | 2020-04-14 11:17 | NUR ---
PT SEEN AND EXAMINED BY .
--- NOTE | 2020-04-14 11:20 | NUR ---
IV LINE ESTABLISHED BLOOD DRAWN AND SENT TO LAB.
[2020-04-14] MEDS ORDERED: IV NS 0.9% 500 ML IV ONE (11:30)
[2020-04-14 11:37] LABS: BASOPHILS % (AUTO) 0.6 % (0.0-2.0); EOSINOPHILS % (AUTO) 2.8 % (0.0-6.0); HEMATOCRIT 46 % (33-45); HEMOGLOBIN 15.1 g/dL (11.5-14.8); LYMPHOCYTES # (AUTO) 0.7 /CMM (0.8-4.8); MEAN CORPUSCULAR HGB CONC 33 g/dl (31.0-36.0); MEAN CORPUSCULAR VOLUME 97 fL (82-100); MONOCYTES # (AUTO) 0.8 /CMM (0.1-1.30); NEUTROPHILS # (AUTO) 5.4 /CMM (1.8-8.9); NEUTROPHILS % (AUTO) 75.6 % (43.0-81.0); PLATELET COUNT (AUTO) 162 /CMM (150-450); RED BLOOD CELL COUNT(AUTO) 4.71 MIL/uL (4.0-5.2); WHITE BLOOD COUNT (AUTO) 7.1 K/uL (4.3-11.0)
--- NOTE | 2020-04-14 11:50 | NUR ---
COVID SWAB OBTAINED AND SENT TO LAB.
--- NOTE | 2020-04-14 11:52 | NUR ---
DRUM REEL CUTTER AT BEDSIDE FOR XRAY.
[2020-04-14 12:05] LABS: CREATINE KINASE, TOTAL 43 U/L (26-192); FERRITIN 56 ng/mL (8-388)
[2020-04-14 12:06] LABS: ALANINE AMINOTRANSFERASE 42 U/L (12-78); ALBUMIN 3.5 g/dL (3.4-5.0); ALKALINE PHOSPHATASE 80 U/L (46-116); ASPARTATE AMINOTRANSFERASE 23 U/L (15-37); B-TYPE NATRIURETIC PEPTIDE 13 PG/ML (0-125); BILIRUBIN,TOTAL 0.3 mg/dL (0.2-1.0); CALCIUM, SERUM 9.2 mg/dL (8.5-10.1); CARBON DIOXIDE 36 mmol/L (21-32); CHLORIDE 97 mmol/L (98-107); GLUCOSE 121 mg/dL (74-106); POTASSIUM 4.2 mmol/L (3.5-5.1); SODIUM SERUM 135 mmol/L (136-145); TOTAL PROTEIN, SERUM 6.9 g/dL (6.4-8.2); UREA NITROGEN, BLOOD 22 mg/dL (7-18)
[2020-04-14 12:16] LABS: CREATININE 0.7 mg/dL (0.6-1.3)
[2020-04-14] MEDS ORDERED: methylPREDNISolone SOD SUCC 125 MG/2ML VIAL ONE (12:29)
[2020-04-14] MEDS ORDERED: methylPREDNISolone SOD SUCC 125 MG/2ML VIAL IV ONE (12:30)
--- NOTE | 2020-04-14 12:46 | NUR ---
received a call from the lab for covid 19 result "negative". notified
--- NOTE | 2020-04-14 13:31 | NUR ---
IV removed. Catheter intact and site benign. Pressure and 4x4 applied to site. No bleeding noted. Patient discharged to home in stable condition. Written and verbal after care instructions given. Patient verbalizes understanding of instruction.
[2020-04-14 13:32] VITALS: BP 108/54
== END 2020-04-14 13:32 | disposition home or self-care (01) ==
LOC: ER 10:56
DX: J44.9 Chronic obstructive pulmonary disease, unspecified (principal); I10 Essential (primary) hypertension; I49.1 Atrial premature depolarization
CPT/HCPCS: 36415; 71045; 80053; 82550; 82728; 83605; 83615; 83880; 84145; 84484; 85025; 85378; 86140; 87040; 87426; 93005; 96374; 99285; J2930; J7040

== ENCOUNTER 2020-11-05 12:10 | Emergency (ER) | payer MEDICARE, OTHER ==
[~2020-11-05] VITALS: Ht 162.6 cm; Wt 79.4 kg
[~2020-11-05 12:10] MED LIST changes: +LISI10TA29 PO; -LISI10TA5 PO; -RISP0.5T20 PO; +RISP0.5T65 PO
--- NOTE | 2020-11-05 12:10 | NUR ---
PT TARAS FROM [facility] C/O HEADACHE AND AGGRESSIVE BEHAVIOR TOWARDS STAFF. PT IS AAOX4, NOT IN RESPIRATORY DISTRESS, V/S STABLE, KEPT RESTED AND COMFORTABLE, WILL CONTINUE TO MONITOR.
--- NOTE | 2020-11-05 12:22 | NUR ---
SEEN AND EXAMINED BY .
--- NOTE | 2020-11-05 12:27 | NUR ---
ER PHLEB AT BEDSIDE FOR BLOOD DRAW.
--- NOTE | 2020-11-05 12:41 | NUR ---
COVID SPECIMEN OBTAINED AND SENT TO LAB.
[2020-11-05 12:51] LABS: BASOPHILS # (AUTO) 0.1 /CMM (0.0-0.2); BASOPHILS % (AUTO) 1.5 % (0.0-2.0); EOSINOPHILS % (AUTO) 0.9 % (0.0-6.0); HEMATOCRIT 44 % (33-45); HEMOGLOBIN 14.4 g/dL (11.5-14.8); LYMPHOCYTES # (AUTO) 0.6 /CMM (0.8-4.8); LYMPHOCYTES % (AUTO) 8.9 % (20.0-44.0); MEAN CORPUSCULAR HGB CONC 33 g/dl (31.0-36.0); MEAN CORPUSCULAR VOLUME 95 fL (82-100); MONOCYTES # (AUTO) 0.6 /CMM (0.1-1.30); NEUTROPHILS # (AUTO) 5.8 /CMM (1.8-8.9); NEUTROPHILS % (AUTO) 80.7 % (43.0-81.0); PLATELET COUNT (AUTO) 215 /CMM (150-450); WHITE BLOOD COUNT (AUTO) 7.1 K/uL (4.3-11.0)
[2020-11-05 12:52] LABS: BILIRUBIN,URINE NEGATIVE (NEGATIVE); COLOR,URINE YELLOW (YELLOW); LEUKOCYTE ESTERASE ,URINE NEGATIVE (NEGATIVE); NITRITE, URINE NEGATIVE (NEGATIVE); PROTEIN,URINE NEGATIVE (NEGATIVE); UGLUCOSE NEGATIVE (NEGATIVE); UROBILINOGEN,URINE 0.2 EU/dL (0.2)
[2020-11-05 12:53] LABS: CALCIUM, SERUM 8.8 mg/dL (8.5-10.1); CARBON DIOXIDE 33 mmol/L (21-32); CHLORIDE 100 mmol/L (98-107); CREATININE 0.6 mg/dL (0.6-1.3); GLUCOSE 87 mg/dL (74-106); POTASSIUM 3.8 mmol/L (3.5-5.1); SODIUM SERUM 138 mmol/L (136-145); UREA NITROGEN, BLOOD 12 mg/dL (7-18)
[2020-11-05 12:59] LABS: ALANINE AMINOTRANSFERASE 27 U/L (12-78); ALBUMIN 3.2 g/dL (3.4-5.0); ALCOHOL, BLOOD < 3 mg/dL (0-0); ALKALINE PHOSPHATASE 72 U/L (46-116); ASPARTATE AMINOTRANSFERASE 18 U/L (15-37); BILIRUBIN,DIRECT 0.1 mg/dL (0.0-0.2); BILIRUBIN,TOTAL 0.3 mg/dL (0.2-1.0); TOTAL PROTEIN, SERUM 6.5 g/dL (6.4-8.2)
[2020-11-05 13:12] LABS: ACETAMINOPHEN 0 ug/ml (10-30)
[2020-11-05 14:57] LABS: BACTERIA,URINE Rare /HPF (None Seen); RBC,URINE 0-3 /HPF (0-2); SQUAMOUS EPITHELIAL CELL,UR Moderate /HPF (None Seen); WBC,URINE 0-2 /HPF (0-3)
--- NOTE | 2020-11-05 15:34 | NUR ---
LAB CALLED PT COVID-19 RESULT NEGATIVE (-) INFORMED.
--- NOTE | 2020-11-05 15:36 | NUR ---
CALLED [facility] [phone] CURING SUPERVISOR WILL BE HERE IN 15 MINS.
--- NOTE | 2020-11-05 16:24 | NUR ---
Patient discharged to home in stable condition. Written and verbal after care instructions given. Patient verbalizes understanding of instruction.
[2020-11-05 16:25] VITALS: BP 121/84
== END 2020-11-05 16:25 ==
LOC: ER 12:25
DX: F20.9 Schizophrenia, unspecified (principal); G89.29 Other chronic pain; M54.9 Dorsalgia, unspecified; I10 Essential (primary) hypertension; Z88.0 Allergy status to penicillin; Z88.8 Allergy status to other drugs, medicaments and biological substances; Z79.899 Other long term (current) drug therapy; Z20.822 Contact with and (suspected) exposure to COVID-19
CPT/HCPCS: 36415; 80048-TC; 80076-TC; 81001; 85025-TC; C9803; G0480

== ENCOUNTER 2021-03-10 15:23 | Emergency (ER) | payer MEDICARE, OTHER ==
[~2021-03-10] VITALS: Ht 162.6 cm; Wt 58.5 kg
--- NOTE | 2021-03-10 15:23 | NUR ---
PT BIB [facility] RESIDENTIAL FOR AGITATION AND VERBALLY AGRESSIVE TO STAFF AT FACILITY. PT IS AAOX4, NOT IN RESPIRATORY DISTRESS, V/S STABLE, KEPT RESTED AND COMFORTABLE. WILL CONTINUE TO MONITOR.
--- NOTE | 2021-03-10 15:50 | NUR ---
SEEN AND EXAMINED BY .
--- NOTE | 2021-03-10 16:00 | NUR ---
ER PHLEB AT BEDSIDE FOR BLOOD DRAW.
[2021-03-10 16:09] LABS: BASOPHILS # (AUTO) 0.1 /CMM (0.0-0.2); EOSINOPHILS % (AUTO) 0.6 % (0.0-6.0); HEMATOCRIT 44 % (33-45); HEMOGLOBIN 14.1 g/dL (11.5-14.8); LYMPHOCYTES # (AUTO) 0.7 /CMM (0.8-4.8); LYMPHOCYTES % (AUTO) 12.9 % (20.0-44.0); MEAN CORPUSCULAR HGB CONC 33 g/dl (31.0-36.0); MEAN CORPUSCULAR VOLUME 94 fL (82-100); MONOCYTES # (AUTO) 0.7 /CMM (0.1-1.30); MONOCYTES % (AUTO) 12.6 % (2.0-12.0); NEUTROPHILS # (AUTO) 3.9 /CMM (1.8-8.9); NEUTROPHILS % (AUTO) 72.9 % (43.0-81.0); PLATELET COUNT (AUTO) 192 /CMM (150-450); RED BLOOD CELL COUNT(AUTO) 4.63 MIL/uL (4.0-5.2); WHITE BLOOD COUNT (AUTO) 5.4 K/uL (4.3-11.0)
[2021-03-10 16:17] LABS: CALCIUM, SERUM 8.7 mg/dL (8.5-10.1); CARBON DIOXIDE 31 mmol/L (21-32); CHLORIDE 98 mmol/L (98-107); CREATININE 0.5 mg/dL (0.6-1.3); GLUCOSE 110 mg/dL (74-106); POTASSIUM 3.9 mmol/L (3.5-5.1); SODIUM SERUM 134 mmol/L (136-145); UREA NITROGEN, BLOOD 11 mg/dL (7-18)
[2021-03-10 16:22] LABS: ALANINE AMINOTRANSFERASE 29 U/L (12-78); ALBUMIN 3.2 g/dL (3.4-5.0); ALKALINE PHOSPHATASE 115 U/L (46-116); ASPARTATE AMINOTRANSFERASE 19 U/L (15-37); BILIRUBIN,DIRECT 0.1 mg/dL (0.0-0.2); BILIRUBIN,TOTAL 0.2 mg/dL (0.2-1.0); TOTAL PROTEIN, SERUM 6.6 g/dL (6.4-8.2)
[2021-03-10 16:24] LABS: ACETAMINOPHEN < 0 ug/ml (10-30); ALCOHOL, BLOOD < 3 mg/dL (0-0)
--- NOTE | 2021-03-10 16:42 | NUR ---
negative covid per lab
[2021-03-10] MEDS ORDERED: ACETAMINOPHEN 325 MG TABLET PO ONE (17:00)
--- NOTE | 2021-03-10 17:02 | NUR ---
URINE SPECIMEN COLLECTED AND SENT TO LAB.
--- NOTE | 2021-03-10 17:07 | NUR ---
KATIE KWAN [phone] WILL BE HERE IN AN HOUR OR SO.
[2021-03-10] MEDS ORDERED: ACETAMINOPHEN 325 MG TABLET ONE (17:10)
--- NOTE | 2021-03-10 17:11 | NUR ---
PT IS BACK FROM [place] SCAN.
[2021-03-10 17:21] LABS: BILIRUBIN,URINE Negative (NEGATIVE); COLOR,URINE YELLOW (YELLOW); LEUKOCYTE ESTERASE ,URINE Negative (NEGATIVE); NITRITE, URINE Negative (NEGATIVE); PROTEIN,URINE Negative (NEGATIVE); UGLUCOSE Negative (NEGATIVE); UROBILINOGEN,URINE 0.2 EU/dL (0.2)
[2021-03-10 17:29] LABS: BACTERIA,URINE Rare /HPF (None Seen); SQUAMOUS EPITHELIAL CELL,UR Few /HPF (None Seen)
[2021-03-10 17:30] LABS: RBC,URINE 0-2 /HPF (0-2); WBC,URINE 0-2 /HPF (0-3)
[2021-03-10] MEDS ORDERED: ENAL2.5T17 PO (17:44)
[2021-03-10] MEDS ORDERED: LACT10SO3 PO (17:44)
[2021-03-10] MEDS ORDERED: IBUP-2715 PO (17:44)
[2021-03-10] MEDS ORDERED: FLUT16SP16 (17:44)
[2021-03-10] MEDS ORDERED: ACET-2605 PO (17:44)
[2021-03-10] MEDS ORDERED: GUAI100S11 PO (17:44)
[2021-03-10] MEDS ORDERED: RISP0.2515 PO (17:44)
[2021-03-10] MEDS ORDERED: SENN-261 PO (17:44)
[2021-03-10] MEDS ORDERED: ZOLP5TAB8 PO (17:44)
[2021-03-10] MEDS ORDERED: CALC1TAB30 PO (17:44)
[2021-03-10] MEDS ORDERED: ONDA4TAB5 PO (17:44)
[2021-03-10] MEDS ORDERED: PALI234D IM (17:44)
[2021-03-10] MEDS ORDERED: BISA10SU11 RC (17:44)
[2021-03-10] MEDS ORDERED: ATOR10TA PO (17:44)
[2021-03-10] MEDS ORDERED: PRED1TAB PO (17:44)
[2021-03-10] MEDS ORDERED: ESCI5TAB PO (17:44)
[2021-03-10] MEDS ORDERED: CLON0.1T PO (17:44)
[2021-03-10] MEDS ORDERED: BUDE0.5A4 IH (17:44)
[2021-03-10 18:18] VITALS: BP 145/88
--- NOTE | 2021-03-10 19:11 | NUR ---
CALLED TRANSP[facility] ETA 60 MINS PER GARRETT.
--- NOTE | 2021-03-10 20:08 | NUR ---
[facility] AT BEDSIDE FOR TRANSPORT
== END 2021-03-10 20:37 ==
LOC: ER 15:29
DX: R45.1 Restlessness and agitation (principal); R51.9 Headache, unspecified; F31.9 Bipolar disorder, unspecified; G89.4 Chronic pain syndrome; F20.9 Schizophrenia, unspecified; G47.00 Insomnia, unspecified; J44.9 Chronic obstructive pulmonary disease, unspecified; I10 Essential (primary) hypertension; Z88.0 Allergy status to penicillin; Z88.8 Allergy status to other drugs, medicaments and biological substances; F17.200 Nicotine dependence, unspecified, uncomplicated; Z79.899 Other long term (current) drug therapy; Z20.822 Contact with and (suspected) exposure to COVID-19
CPT/HCPCS: 36415; 70450-TC; 80048-TC; 80076-TC; 81001; 85025-TC; C9803; G0480